=== PATIENT | female | born 1945 | race Caucasian/White ===

== ENCOUNTER 2016-07-26 11:30 | Inpatient (IN) ==
[2016-07-26] MEDS ORDERED: HYDROmorphone 2 MG/1 ML VIAL ONE (12:05)
[2016-07-26] MEDS ORDERED: ONDANSETRON 4 MG/2 ML VIAL ONE ×2 (12:05→16:16)
[2016-07-26] MEDS ORDERED: ONDANSETRON 4 MG/2 ML VIAL IV STA (12:08)
[2016-07-26] MEDS ORDERED: HYDROmorphone 2 MG/1 ML VIAL IV STA ×2 (12:08→14:05)
--- NOTE | 2016-07-26 12:13 | Emergency Department Note ---
Arrival - Arrival Chief Complaint: Fall Stated Complaint: fall ED Nursing Triage Note: Brought in per EMS from home with c/o right ankle pain and swelling onset 1030am. Reports was walking in yard, stepped in hole, twisted ankle, and fell. Obvious deformity noted right medial ankle. +pedal pulse. Skin warm/dry to touch. Abrasion noted right medial ankle. Splint noted left lower extremity. Mode of Arrival: Stretcher Source: Patient, RN Notes Reviewed Time Seen by Provider: 07/26/16 12:03 - History of Present Illness HPI Narrative: Patient is a 71-year-old white female who presents to the emergency department following a fall at home. Patient states that she stepped in a hole in the yard. Patient has severe right ankle pain and an obvious deformity. Patient was brought to the emergency department by EMS. Onset (ago): minute(s) (30) Consistency: constant Severity: severe Date of Last Menstrual Period: hyst Allergies/Adverse Reactions: Allergies Allergy/AdvReac Type Severity Reaction Status Date / Time isosorbide [From Imdur] Allergy Unknown/Unable Verified 07/26/16 11:43 to obtain propoxyphene [From Darvon] Allergy Unknown/Unable Verified 07/26/16 11:43 to obtain Home Medications: Home Medications Medication Instructions Recorded Confirmed Type Aspirin Tab 325 mg PO DAILY 08/10/14 07/26/16 History Furosemide Tab [Lasix Tab] 20 mg PO DAILY PRN 08/10/14 07/26/16 History Glimepiride 8 mg PO DAILY 08/10/14 07/26/16 History amLODIPine [Norvasc] 5 mg PO DAILY 08/10/14 07/26/16 History Albuterol Sulfate [Ventolin HFA] 2 puff INH Q6HR PRN 12/09/14 07/26/16 History Cholecalciferol (Vitamin D3) 1,000 unit PO DAILY 12/09/14 07/26/16 History [Vitamin D3] Insulin NPH/Regular 70/30 [HumuLIN 30 unit SUBCUT QAM 12/09/14 07/26/16 History 70/30] Insulin NPH/Regular 70/30 [HumuLIN 40 unit SUBCUT QPM 12/09/14 07/26/16 History 70/30] Nitroglycerin Sl Tab [Nitrostat] 0.4 mg SL Q5M PRN 12/09/14 07/26/16 History Biotin 1 mg PO DAILY 12/11/14 07/26/16 History Hyoscyamine Sulfate [Levsin-Sl] 0.125 mg SL Q1-2H PRN #60 tablet 07/03/15 Rx Methocarbamol Tab [Robaxin Tab] 750 mg PO QID PRN #60 tablet 07/03/15 07/26/16 Rx Pantoprazole Tab [Protonix Tab] 40 mg PO DAILY #30 tablet 07/03/15 07/26/16 Rx traMADol TAB [Ultram] 50 mg PO TID PRN #30 tablet 07/03/15 07/26/16 Rx Multivitamin (Centrum) [Centrum 1 tablet PO DAILY 11/19/15 07/26/16 History Tab] Potassium Chloride [K-Tab ER] 10 meq PO BID 11/19/15 07/26/16 History Review of System - Review of System 12 point system: reviewed and no additional remarkable complaints except as stated Medical,Surgical,& Family Hx - Medical History Cardio: History of: CAD, Hypertension Neurology: No history of: Seizures HEENT: No history of: Glaucoma Endocrine: History of: Diabetes Mellitus (IDDM), Dyslipidemia, Thyroid Disorder No history of: Adrenal Disease Respiratory: History of: Bronchitis, COPD Gastrointestinal: History of: GERD, Polyps, GI Problems Musculoskeletal: History of: Back/Neck Problems Hematology: History of: Anemia No history of: Blood Transfusion Reaction Reproductive: History of: Abnormal Pap Smear Other: History of: Miscellaneous Medical Problems (cramps in leg) No history of: Anesthesia Reactions, Cancer - Surgical History Cardiac Surgeries: Sugical HX of: Cardiac Catheterization (2012) HEENT Surgeries: Surgical HX of: Eye Surgery (cataract) Patient denies: Thyroid Surgery Abdominal Surgeries: Surgical HX of: Abdominal Surgery (GASTRIC NEuROSTIMULATOR) , Appendectomy, Cholecystectomy, Colonoscopy, EGD Reproductive Surgeries: Surgical HX of;: Breast Surgery (Cyst extraction), Gynecologic Surgery, Hysterectomy Patient denies;: Genitourinary Surgery Orthopedic Surgeries: Patient denies;: Orthopedic Surgery - Family History Family History: Reports;: Family Cancer (brother-lung, sister-liver), Family Diabetes (all siblings), Family Heart Disease (mother and father had [place], 3 brothers had cabg), Family Hypertension (brother) - Social History Smoking Status: Never smoker Frequency of Alcohol Use: None Type of Drug Use: None Functional capacity: independent ambulation Exam Vital Signs: Vital Signs Temperature 97.7 F 07/26/16 11:30 Pulse Rate 77 07/26/16 11:30 Respiratory Rate 18 07/26/16 11:30 Blood Pressure 145/84 07/26/16 11:30 O2 Sat by Pulse Oximetry 98 07/26/16 11:30 GENERAL: This is a well-nourished well-developed white female in no apparent distress. VITAL SIGNS: Reviewed HEENT: Head is atraumatic and normocephalic. Pupils are equal round react to light. Extraocular movements are intact. Oropharynx is benign with moist mucous membranes. NECK: Neck is soft and supple without tenderness. There are no masses. There is no lymphadenopathy. LUNGS: Lungs are clear to auscultation. Chest rises symmetrically. There is no chest wall tenderness. CV: Heart is regular rate and rhythm without murmurs rubs or gallops. ABDOMEN: Abdomen is soft, nontender to palpation. There are no abdominal abnormal masses palpated. There is no organomegaly. Bowel sounds are present and active. SKIN: Skin is warm and dry. No rash. EXTREMITIES: Obvious deformity of the right ankle. Swelling about the right ankle. There is tenderness overlying the proximal fibula. Capillary refill is less than 2 seconds. NEUROLOGIC: Awake alert and oriented 4. Cranial nerves II through XII are grossly intact. Motor is 5 over 5 in all extremities bilaterally. Course - Consultations Consultation #1: Discussed with Dr. Smith. Patient will be admitted to his service. Patient will be held n.p.o. for open reduction internal fixation later this afternoon. Time: 12:54 Procedures - Orthopedic Fracture Reduction Fracture #1 Consent Obtained: written consent Time Out Performed: Yes Side: right Fracture Reduction Location: other (Closed trimalleolar fracture dislocation of right ankle.) Analgesia: procedural sedation (Diprivan 50 mg IV given by me. Estrada/Kiera) Technique: direct manipulation Post Reduction X-rays Demonstrate: anatomical reduction Post-reduction neuro exam: intact Post-reduction vascular exam: intact Splint Applied: Yes (Posterior splint and stirrup splint applied with generous cast padding.) Patient Tolerated Procedure: well Results - Labs Lab Results: I have reviewed the patients labs - EKG EKG results: interpreted by ERMD - Impressions EKG: Normal sinus rhythm with a rate of 67, normal ST-T waves, normal axis. - Diagnostic Findings Procedure: Chest x-ray: image reviewed by me (No cardiomegaly, no pleural effusions, no infiltrate.), X-ray: image reviewed by me (Right ankle x-ray: Trimalleolar fracture dislocation of the right ankle. Tib-fib x-ray: No evidence of proximal fibular fracture. Postreduction x-ray right ankle:) Disposition Clinical Impression: Diabetes mellitus, Closed trimalleolar fracture of right ankle Case discussed with: patient Disposition: Still a Patient Condition: Stable Time of Disposition: 12:52
[2016-07-26] MEDS ORDERED: PROPOFOL 200 MG/20 ML VIAL IV ONE ×2 (12:29→16:16)
[2016-07-26] MEDS ORDERED: SODIUM CHLORIDE 0.9% 1,000 ML IV SCH (12:30)
--- NOTE | 2016-07-26 12:41 | XRay Report ---
Portable chest Date: 07/26/2016 Clinical history: Respiratory preoperative evaluation Comparison: 11/19/2015 Technique: Portable AP sitting chest Findings: The heart is smaller in size with interval removal of the endotracheal tube. Decreased parenchymal findings in the lungs with probable chronic scarring at the lung bases. Stable mediastinum with no acute osseous findings. Impression: No acute cardiopulmonary pathology identified. PROCEDURE INTERPRETED AT [facility] DEPARTMENT OF RADIOLOGY Final Report Signed by: Dr. Kala Araya
--- NOTE | 2016-07-26 12:44 | XRay Report ---
Exam: XR ankle 3V RT Date: 07/26/2016 11:59 AM Comparison: None Indication: Pain after fall Technique:[AP, oblique, and lateral right ankle] Findings: Soft tissue swelling. Acute oblique fracture on the distal right fibula with posterior medial displacement of the distal fracture fragment. There is an acute transverse fracture of the medial malleolus which is displaced beneath the distal tibia which is dislocated anteriorly in relationship to the talus. There is associated anterior dislocation of the fibula. Additional displaced oblique fracture of the posterior malleolus. Calcaneal osteophytes. Impression: Soft tissue swelling with trimalleolar fracture/dislocation right ankle. Underlying degenerative changes with calcaneal osteophytes. PROCEDURE INTERPRETED AT [facility] DEPARTMENT OF RADIOLOGY Final Report Signed by: Dr. Kala Araya
--- NOTE | 2016-07-26 12:46 | XRay Report ---
Exam: XR tibia fibula RT Date: 07/26/2016 12:07 PM Comparison: None Indication: Right lower leg pain after fall Technique:[AP and lateral right tibia/fibula] Findings: Soft tissue swelling. Acute displaced fractures of the distal right fibula, medial malleolus, and posterior malleolus. There is anterior dislocation of the distal tibia and fibula in relationship to the talus. Underlying minimal degenerative changes. Impression: Soft tissue swelling. Acute displaced trimalleolar fracture/dislocation of the right ankle. PROCEDURE INTERPRETED AT [facility] DEPARTMENT OF RADIOLOGY Final Report Signed by: Dr. Kala Araya
--- NOTE | 2016-07-26 13:02 | EKG Report ---
Stationary ECG Study [facility] Test Date: 07/26/2016 1:01:44 PM Pat Name: DONA HERNANDEZ Department: Room: Gender: F Commission Clerk: : 1945 Requested by: Bean Heard Order Number: [id number] Reading MD: FOZIA WEEKS Intervals Julian Rate: 67 P: 69 KS: 196 QRS: 21 QRSD: 80 T: 54 QT: 404 QTc: 420 Interpretive Statements SINUS RHYTHM Electronically Signed On 08-01-16 10:56:21 CDT by FOZIA WEEKS [email or web address]
--- NOTE | 2016-07-26 13:02 | XRay Report ---
Exam: XR ankle 2V RT Date: 07/26/2016 12:47 PM Comparison: 07/26/2016 Indication: Post reduction Technique:[AP and lateral right ankle] Findings: Improved alignment of the right trimalleolar fracture with interval reduction of the dislocation of the tibia and fibula in relationship to the talus. Application of plaster cast. Impression: Improved alignment of the trimalleolar fracture with reduction of dislocation of the right ankle. Application of plaster cast. PROCEDURE INTERPRETED AT [facility] DEPARTMENT OF RADIOLOGY Final Report Signed by: Dr. Kala Araya
[2016-07-26] MEDS ORDERED: FAMOTIDINE 20 MG/2 ML VIAL IV STA (13:20)
[2016-07-26] MEDS ORDERED: PROPOFOL 200 MG/20 ML VIAL IV STA (13:21)
[2016-07-26 13:23] LABS: Basophils # 0.1 10*3/uL (0.0-0.2); Basophils % 0.5 % (0.0-0.8); Eosinophils # 0.2 10*3/uL (0.0-0.87); Eosinophils % 1.8 % (0.00-10.9); Hematocrit 38.1 VOL% (35.7-47.0); Hemoglobin 12.5 GM/DL (12.0-16.0); Immature Granulocytes % 0.2 %; Immature Granulocytes Absolute 0.02 #; Lymphocytes # 1.7 10*3/uL (1.4-4.0); Mean Corpuscular HGB Conc 32.8 GM/DL (32-36); Mean Corpuscular Hemoglobin 30 PG (27-34); Mean Corpuscular Volume 90.9 FL (87-102); Mean Platelet Volume 10.9 FL (9.6-12.0); Monocytes # 0.6 10*3/uL (0.11-0.8); Monocytes % 6.5 % (1.7-12.7); Neutrophils # 6.9 10*3/uL (1.4-7.4); Platelet Count 240 T/CUMM (130-400); Red Blood Count 4.19 MC/CUMM (3.8-5.5); Red Cell Distribution Width 11.8 % (9.3-17.3); White Blood Count 9.5 T/CUMM (4-12)
[2016-07-26] MEDS ORDERED: MAGNESIUM HYDROXIDE SUSP 30 ML UDCUP PO PRN (13:23)
[2016-07-26] MEDS ORDERED: HYDROmorphone 2 MG/1 ML VIAL IV PRN (13:25)
[2016-07-26] MEDS ORDERED: ONDANSETRON 4 MG/2 ML VIAL IV PRN (13:26)
[2016-07-26 13:27] LABS: PT Patient Result 10.9 SECS; Partial Thromboplastin Time 24.2 SECS (0-40)
[2016-07-26 13:43] LABS: Osmolality,Calculated 290.1 MOS/KG (273-304)
[2016-07-26] MEDS ORDERED: SODIUM CHLORIDE 0.9% 1,000 ML IV STA (14:06)
[2016-07-26] MEDS ORDERED: FAMOTIDINE 20 MG/2 ML VIAL IV ONE (14:14)
[2016-07-26] MEDS ORDERED: ROPIVACAINE 0.5% 30 ML VIAL ONE (14:38)
[2016-07-26] MEDS ORDERED: METOCLOPRAMIDE 10 MG/2 ML VIAL ONE (14:56)
[2016-07-26] MEDS ORDERED: METOCLOPRAMIDE 10 MG/2 ML VIAL IV ONE (14:57)
[2016-07-26] MEDS ORDERED: ceFAZolin 2,000 MG in PREMIX 1 EACH IV ONE (15:02)
[2016-07-26] MEDS ORDERED: MIDAZOLAM 2 MG/2 ML VIAL ONE ×2 (15:38→17:41)
[2016-07-26] MEDS ORDERED: fentaNYL 100 MCG/2 ML VIAL ONE ×2 (15:38→17:41)
[2016-07-26] MEDS: LACTATED RINGERS 1,000 ML IV SCH ×2 (15:45→17:35)
--- NOTE | 2016-07-26 16:11 | Orthopedic History & Physical ---
Assessment and Plan (1) Closed trimalleolar fracture of right ankle Status: Acute Current Visit: Yes Qualifiers: Encounter type: initial encounter Qualified Code(s): S82.851A - Displaced trimalleolar fracture of right lower leg, initial encounter for closed fracture History of Present Illness Chief complaint: Right trimalleolar ankle fracture dislocation History of present illness: Ms. Power is a 71 year old female who sustained a right trimalleolar ankle fracture dislocation after stepping in a hole in the yard. She was seen and evaluated [place] emergency room. Dr. Estrada reduced and splinted her ankle. She presents for formal fixation of her ankle. She has not had any prior history of problems with her ankle or foot. She denies any other injury. She denies numbness or tingling. Mildly sedated, oriented. Lungs clear to auscultation Heart regular rate and rhythm Spine block, bilateral upper extremities, left lower extremity are without deformity and are nontender. Right lower extremity splinted. She can flex extend her toes. Sensations grossly intact light touch. Capillary refill is less than 2 seconds. Radiographs injury and post reduction films were reviewed. They demonstrate a trimalleolar ankle fracture and subsequent reduction in adequate alignment. Impression: Right trimalleolar ankle fracture dislocation Plan: I have advised open reduction fixation. Risks benefits were discussed. All questions were answered. We will plan proceeding with surgery. Anesthesia is to perform a popliteal block. Home Medications Medication Instructions Recorded Confirmed Type Aspirin Tab 325 mg PO DAILY 08/10/14 07/26/16 History Furosemide Tab [Lasix Tab] 20 mg PO DAILY PRN 08/10/14 07/26/16 History Glimepiride 8 mg PO DAILY 08/10/14 07/26/16 History amLODIPine [Norvasc] 5 mg PO DAILY 08/10/14 07/26/16 History Albuterol Sulfate [Ventolin HFA] 2 puff INH Q6HR PRN 12/09/14 07/26/16 History Cholecalciferol (Vitamin D3) 1,000 unit PO DAILY 12/09/14 07/26/16 History [Vitamin D3] Insulin NPH/Regular 70/30 [HumuLIN 30 unit SUBCUT QAM 12/09/14 07/26/16 History 70/30] Insulin NPH/Regular 70/30 [HumuLIN 40 unit SUBCUT QPM 12/09/14 07/26/16 History 70/30] Nitroglycerin Sl Tab [Nitrostat] 0.4 mg SL Q5M PRN 12/09/14 07/26/16 History Biotin 1 mg PO DAILY 12/11/14 07/26/16 History Hyoscyamine Sulfate [Levsin-Sl] 0.125 mg SL Q1-2H PRN #60 tablet 07/03/15 Rx Methocarbamol Tab [Robaxin Tab] 750 mg PO QID PRN #60 tablet 07/03/15 07/26/16 Rx Pantoprazole Tab [Protonix Tab] 40 mg PO DAILY #30 tablet 07/03/15 07/26/16 Rx traMADol TAB [Ultram] 50 mg PO TID PRN #30 tablet 07/03/15 07/26/16 Rx Multivitamin (Centrum) [Centrum 1 tablet PO DAILY 11/19/15 07/26/16 History Tab] Potassium Chloride [K-Tab ER] 10 meq PO BID 11/19/15 07/26/16 History Allergies Allergy/AdvReac Type Severity Reaction Status Date / Time isosorbide [From Imdur] Allergy Unknown/Unable Verified 07/26/16 11:43 to obtain propoxyphene [From Darvon] Allergy Unknown/Unable Verified 07/26/16 11:43 to obtain 12 point system: reviewed and no additional remarkable complaints except as stated Medical,Surgical,& Family Hx - Medical History Cardio: History of: CAD, Hypertension Neurology: No history of: Seizures HEENT: No history of: Glaucoma Endocrine: History of: Diabetes Mellitus (IDDM), Dyslipidemia, Thyroid Disorder No history of: Adrenal Disease Respiratory: History of: Bronchitis, COPD Gastrointestinal: History of: GERD, Polyps, GI Problems Musculoskeletal: History of: Back/Neck Problems Hematology: History of: Anemia No history of: Blood Transfusion Reaction Reproductive: History of: Abnormal Pap Smear Other: History of: Miscellaneous Medical Problems (cramps in leg) No history of: Anesthesia Reactions, Cancer - Surgical History Cardiac Surgeries: Sugical HX of: Cardiac Catheterization (2012) HEENT Surgeries: Surgical HX of: Eye Surgery (cataract) Patient denies: Thyroid Surgery Abdominal Surgeries: Surgical HX of: Abdominal Surgery (GASTRIC NEuROSTIMULATOR) , Appendectomy, Cholecystectomy, Colonoscopy, EGD Reproductive Surgeries: Surgical HX of;: Breast Surgery (Cyst extraction), Gynecologic Surgery, Hysterectomy Patient denies;: Genitourinary Surgery Orthopedic Surgeries: Patient denies;: Orthopedic Surgery - Family History Family History: Reports;: Family Cancer (brother-lung, sister-liver), Family Diabetes (all siblings), Family Heart Disease (mother and father had [place], 3 brothers had cabg), Family Hypertension (brother) - Social History Smoking Status: Never smoker Frequency of Alcohol Use: None Type of Drug Use: None Exam - Constitutional Vitals: Period Temp Pulse Resp BP Sys/Garcia Pulse Ox Last 24 Hr 97.7 F 73-80 18-18 134-164/57-85 96-98 Results - Labs CBC & BMP: 07/26/16 12:54 07/26/16 12:54
[2016-07-26] MEDS ORDERED: LIDOCAINE 1% 5 ML VIAL ONE (16:16)
[2016-07-26] MEDS ORDERED: ROCURONIUM 100 MG/10 ML VIAL IV ONE (16:16)
[2016-07-26] MEDS ORDERED: BACITRACIN OINT 0.9 GM PACK TOP ONE (17:09)
[2016-07-26] MEDS ORDERED: FUROSEMIDE 20 MG TABLET PO PRN (17:19)
[2016-07-26] MEDS ORDERED: NITROGLYCERIN SL 0.4 MG TABLET SL PRN (17:19)
[2016-07-26] MEDS ORDERED: HYOSCYAMINE 0.125 MG TABLET SL PRN (17:19)
[2016-07-26] MEDS ORDERED: DEXTROSE 50% 25 GM/50 ML VIAL IV PRN (17:20)
[2016-07-26] MEDS ORDERED: GLUCAGON 1 MG VIAL IM PRN (17:20)
[2016-07-26] MEDS ORDERED: MORPHINE 2 MG/1 ML SYRINGE IV PRN ×2 (17:21)
[2016-07-26] MEDS ORDERED: KETOROLAC 15 MG/1 ML VIAL IV PRN (17:21)
--- NOTE | 2016-07-26 17:29 | Operative Note ---
Date of procedure: 07/26/16 Procedure: DIAGNOSIS: Right displaced trimalleolar fracture PROCEDURE: Right trimalleolar open reduction and fixation without fixation posterior lip (CPT#69945) SURGEON: Luis ANESTHESIA: General with popliteal block PROCEDURE and FINDINGS: After adequate anesthesia was induced, the limb was prepped and draped in the usual sterile fashion. Limb was exsanguinated with Esmarch. Tourniquet was inflated to 300 mmHg. A lateral approach to the distal fibula was made. Skin, subcutaneous tissue, and periosteum was incised longitudinally. Fracture was exposed and reduced. A 6-hole antiglide plate was applied with 2 proximal screws. The medial malleolus was exposed through a medial incision. Neurovascular structures were protected. Fracture was identified and reduced. Medial malleolus was secured with a pin and then followed with a 4.0 mm cannulated partially threaded screw. Wounds were irrigated. Periosteum was approximated with 0 Vicryl figure-of- eight sutures. Subcutaneous tissues were closed with 3-0 Vicryl interrupted, buried sutures. Skin was approximated with malena. Sterile dressing and short leg splint was applied. Tourniquet was released for an approximate time of 34 minutes. Image intensification was used throughout the procedure. Surgeon / Physician: Kamari Smith Jr. Results - Labs CBC & BMP: 07/26/16 12:54 07/26/16 12:54 Discharge Plan - Discharge Medications No Action Aspirin Tab 325 mg PO DAILY amLODIPine [Norvasc] 5 mg PO DAILY Furosemide Tab [Lasix Tab] 20 mg PO DAILY PRN PRN Reason: Edema Glimepiride 8 mg PO DAILY Albuterol Sulfate [Ventolin HFA] 2 puff INH Q6HR PRN PRN Reason: Shortness Of Breath Nitroglycerin Sl Tab [Nitrostat] 0.4 mg SL Q5M PRN PRN Reason: Chest Pain Insulin NPH/Regular 70/30 [HumuLIN 70/30] 40 unit SUBCUT QPM Insulin NPH/Regular 70/30 [HumuLIN 70/30] 30 unit SUBCUT QAM Cholecalciferol (Vitamin D3) [Vitamin D3] 1,000 unit PO DAILY Biotin 1 mg PO DAILY Hyoscyamine Sulfate [Levsin-Sl] 0.125 mg SL Q1-2H PRN #60 tablet PRN Reason: chest pain esophageal spasm Methocarbamol Tab [Robaxin Tab] 750 mg PO QID PRN #60 tablet PRN Reason: Chest Pain Pantoprazole Tab [Protonix Tab] 40 mg PO DAILY #30 tablet traMADol TAB [Ultram] 50 mg PO TID PRN #30 tablet PRN Reason: Chest Pain Multivitamin (Centrum) [Centrum Tab] 1 tablet PO DAILY Potassium Chloride [K-Tab ER] 10 meq PO BID - Follow Up or Referral - Forms/Instructions
[2016-07-26] MEDS ORDERED: LACTATED RINGERS 1,000 ML IV ONE (17:41)
[2016-07-26] MEDS ORDERED: SEVOFLURANE 1 UNIT/15 MINUTE INH ONE (17:41)
--- NOTE | 2016-07-26 17:52 | XRay Report ---
Referring Physician: Kamari Smith Jr Exam: XR ankle 3V RT intraoperative Date: July 26, 2016 at 4:08 PM Reason: ORIF right ankle Comparison: Right ankle x-rays July 26, 2016 Findings: 3 images of the right ankle were provided after performance of the procedure. Fluoroscopy time was 4.4 seconds. Images demonstrate internal fixation of the distal right fibula and medial malleolus. Position and alignment appear satisfactory. A fracture of the posterior distal right tibia is also suspected. No new acute fracture is identified. Impression: Images are presumed satisfactory for the purposes of the procedure. PROCEDURE INTERPRETED AT [facility] DEPARTMENT OF RADIOLOGY Final Report Signed by: Dr. Deidra Betancourt
--- NOTE | 2016-07-26 18:10 | Anesthesia Post-Op ---
Anesthesia Post OP - Post Ansesthetic Evaluation Patient seen in post op: Yes Resp: within normal limits CV: within normal limits Mental: within normal limits Temp: within normal limits [id number]: within normal limits Nausea and Vomiting: within normal limits Pain: within normal limits
[2016-07-26] MEDS ORDERED: ALBUTEROL 2.5 MG/3 ML NEB RESP TX PRN (19:00)
[2016-07-26] MEDS: POTASSIUM CHLORIDE 10 MEQ TABLET PO SCH (20:35)
[2016-07-26] MEDS: INSULIN LISPRO 100 UNIT/ML SUBCUT SCH (20:35)
[2016-07-27] MEDS: LACTATED RINGERS 1,000 ML IV SCH (04:00)
[2016-07-27 06:33] LABS: Basophils % 0.4 % (0.0-0.8); Eosinophils # 0.2 10*3/uL (0.0-0.87); Eosinophils % 1.7 % (0.00-10.9); Hematocrit 38.7 VOL% (35.7-47.0); Hemoglobin 12.6 GM/DL (12.0-16.0); Immature Granulocytes % 0.5 %; Immature Granulocytes Absolute 0.05 #; Lymphocytes # 2.3 10*3/uL (1.4-4.0); Lymphocytes % 23.9 % (21.3-54.2); Mean Corpuscular HGB Conc 32.6 GM/DL (32-36); Mean Corpuscular Hemoglobin 30 PG (27-34); Mean Corpuscular Volume 92.6 FL (87-102); Monocytes # 1.1 10*3/uL (0.11-0.8); Monocytes % 11.4 % (1.7-12.7); Neutrophils # 5.9 10*3/uL (1.4-7.4); Neutrophils % 62.1 % (38.7-73.9); Platelet Count 234 T/CUMM (130-400); Red Blood Count 4.18 MC/CUMM (3.8-5.5); Red Cell Distribution Width 11.9 % (9.3-17.3); White Blood Count 9.5 T/CUMM (4-12)
[2016-07-27] MEDS: ceFAZolin 2,000 MG in PREMIX 1 EACH IV SCH ×2 (06:38)
[2016-07-27 07:01] LABS: Calcium 8.4 MG/DL (8.5-10.1); Osmolality,Calculated 283.4 MOS/KG (273-304); Potassium 4.2 MMOL/L (3.5-5.1)
--- NOTE | 2016-07-27 07:18 | Orthopedic Progress Note ---
Assessment and Plan (1) Closed trimalleolar fracture of right ankle Status: Acute Current Visit: Yes Qualifiers: Encounter type: initial encounter Qualified Code(s): S82.851A - Displaced trimalleolar fracture of right lower leg, initial encounter for closed fracture Orthopedics - Subjective Interval history: Ms. Chung is complaining of some medial sided ankle pain. Right lower extremity shows that her splint is clean, dry and intact. She has weak flexion of her toes. Sensation is still mildly diminished. Capillary refill is less than 2 seconds. Toes warm and pink. Impression: Postoperative day #1 status post open reduction fixation right trimalleolar ankle fracture Plan: Mobilize with physical therapy today. Consult hospitalist service for diabetic management. Tentatively plan discharged home tomorrow. She will require a walker. Exam - Constitutional Vitals: Period Temp Pulse Resp BP Sys/Garcia Pulse Ox Last 24 Hr 97 F-98.8 F 73-101 16-20 113-177/57-94 94-98 Results - Labs CBC & BMP: 07/27/16 06:02 07/27/16 06:02 Quality Measures - VTE Contraindication to Pharmacological VTE Prophylaxis: Already on Theraputic Agent , No Prophylaxis Needed
[2016-07-27] MEDS: amLODIPine 5 MG TABLET PO SCH (08:18)
[2016-07-27] MEDS: POTASSIUM CHLORIDE 10 MEQ TABLET PO SCH ×2 (08:18→20:48)
[2016-07-27] MEDS: GLIMEPIRIDE 4 MG TABLET PO SCH (08:18)
[2016-07-27] MEDS: CHOLECALCIFEROL 1,000 UNIT TABLET PO SCH (08:18)
[2016-07-27] MEDS: ASPIRIN 325 MG TABLET PO SCH (08:18)
[2016-07-27] MEDS: PANTOPRAZOLE 40 MG TABLET PO SCH (08:18)
[2016-07-27] MEDS: MULTIVITAMIN (CENTRUM) TABLET PO SCH (08:18)
[2016-07-27] MEDS: INSULIN NPH/REGULAR 70/30 100 UNIT/ML SUBCUT SCH (08:20)
[2016-07-27] MEDS: INSULIN LISPRO 100 UNIT/ML SUBCUT SCH ×4 (08:20→20:48)
[2016-07-27] MEDS ORDERED: NON-FORMULARY MEDICATION (Biotin [Biotin] 1 MG) PO SCH (09:00)
--- NOTE | 2016-07-27 10:26 | Hospitalist Consult Note ---
<Tommy Saldana - Last Filed: 07/27/16 10:13> Assessment and Plan - Time spent with patient Time spent with patient: Greater than 30 minutes (1) Diabetes mellitus Status: Acute Assessment and plan: Agree with SSI protocol and Amaryl 8 mg po daily. Accu-cheks ACHS. Continue current plan of care. Check Hgb A1c and Lipid panel stat. Current Visit: Yes (2) Closed trimalleolar fracture of right ankle Status: Acute Assessment and plan: s/p ORIF on yesterday. Patient appears to be doing well. Will defer to ortho for management. Current Visit: Yes Qualifiers: Encounter type: initial encounter Qualified Code(s): S82.851A - Displaced trimalleolar fracture of right lower leg, initial encounter for closed fracture (3) Hypertension Status: Acute Assessment and plan: Continue Norvasc 5mg. Will continue to monitor BP and adjust medications accordingly. Current Visit: Yes History of Present Illness - Data of Consult Patient: new to practice Consult date: 07/27/16 Requesting Physician: Kamari Smith Jr. - Consult Narrative Reason for consult: Medical management History of present illness: Ms. Power is a 71 year old female who as been admitted for formal fixation of her right ankle after sustaining a fracture on 07/26/16. She reports that she fell after stepping in a hole while walking through her yard. She presented to the ED where Dr. Estrada reduced and splinted her ankle before being sent for an ORIF by Dr. Smith. We have been consulted for medical management of her diabetes mellitus. On exam today, she is resting comfortably in the bedside chair with her right foot propped and supported on a stool. Her cast is dry and intact. She denies any pain, numbness or tingling. She admits to a history of smoking but says she quit more than 30 years ago. She denies alcohol use. Laboratory findings reveal serum glucose of 219. She has been started on sliding scale insulin and Amaryl 8 mg daily. We will continue to follow along and monitor throughout her stay. Thank you for the consult. CC: Kamari Smith Jr., - Home Medications and Allergies Home Medications: Home Medications Medication Instructions Recorded Confirmed Type Aspirin Tab 325 mg PO DAILY 08/10/14 07/26/16 History Furosemide Tab [Lasix Tab] 20 mg PO DAILY PRN 08/10/14 07/26/16 History Glimepiride 8 mg PO DAILY 08/10/14 07/26/16 History amLODIPine [Norvasc] 5 mg PO DAILY 08/10/14 07/26/16 History Albuterol Sulfate [Ventolin HFA] 2 puff INH Q6HR PRN 12/09/14 07/26/16 History Cholecalciferol (Vitamin D3) 1,000 unit PO DAILY 12/09/14 07/26/16 History [Vitamin D3] Insulin NPH/Regular 70/30 [HumuLIN 30 unit SUBCUT QAM 12/09/14 07/26/16 History 70/30] Insulin NPH/Regular 70/30 [HumuLIN 40 unit SUBCUT QPM 12/09/14 07/26/16 History 70/30] Nitroglycerin Sl Tab [Nitrostat] 0.4 mg SL Q5M PRN 12/09/14 07/26/16 History Biotin 1 mg PO DAILY 12/11/14 07/26/16 History Hyoscyamine Sulfate [Levsin-Sl] 0.125 mg SL Q1-2H PRN #60 tablet 07/03/15 Rx Methocarbamol Tab [Robaxin Tab] 750 mg PO QID PRN #60 tablet 07/03/15 07/26/16 Rx Pantoprazole Tab [Protonix Tab] 40 mg PO DAILY #30 tablet 07/03/15 07/26/16 Rx traMADol TAB [Ultram] 50 mg PO TID PRN #30 tablet 07/03/15 07/26/16 Rx Multivitamin (Centrum) [Centrum 1 tablet PO DAILY 11/19/15 07/26/16 History Tab] Potassium Chloride [K-Tab ER] 10 meq PO BID 11/19/15 07/26/16 History Allergies/Adverse Reactions: Allergies Allergy/AdvReac Type Severity Reaction Status Date / Time isosorbide [From Imdur] Allergy Unknown/Unable Verified 07/26/16 11:43 to obtain propoxyphene [From Darvon] Allergy Unknown/Unable Verified 07/26/16 11:43 to obtain Medical,Surgical,& Family Hx - Medical History Cardio: History of: CAD, Hypertension Neurology: No history of: Seizures HEENT: No history of: Glaucoma Endocrine: History of: Diabetes Mellitus (IDDM), Dyslipidemia, Thyroid Disorder No history of: Adrenal Disease Respiratory: History of: Bronchitis, COPD Gastrointestinal: History of: Crohn's Disease, GERD, Polyps, Ulcerative Colitis , GI Problems Musculoskeletal: History of: Back/Neck Problems Hematology: History of: Anemia No history of: Blood Transfusion Reaction Reproductive: History of: Abnormal Pap Smear Other: History of: Miscellaneous Medical Problems (cramps in leg) No history of: Anesthesia Reactions, Cancer - Surgical History Cardiac Surgeries: Sugical HX of: Cardiac Catheterization (2012) Thoracic Surgeries: Patient denies;: Organ Transplant HEENT Surgeries: Surgical HX of: Eye Surgery (cataract) Patient denies: Thyroid Surgery Abdominal Surgeries: Surgical HX of: Abdominal Surgery (GASTRIC NEuROSTIMULATOR) , Appendectomy, Cholecystectomy, Colonoscopy, EGD Reproductive Surgeries: Surgical HX of;: Breast Surgery (Cyst extraction), Gynecologic Surgery, Hysterectomy Patient denies;: Genitourinary Surgery Orthopedic Surgeries: Patient denies;: Orthopedic Surgery - Family History Family History: Reports;: Family Cancer (brother-lung, sister-liver), Family Diabetes (all siblings), Family Heart Disease (mother and father had AK, 3 brothers had cabg), Family Hypertension (brother) - Social History Smoking Status: Former smoker Have you smoked in the last 12 months: No Frequency of Alcohol Use: None Type of Drug Use: None Marital Status: Single Lives With:: Alone Functional capacity: independent ambulation - Constitutional Constitutional: Absent: fatigue, fever(s), frequent falls, headache(s) - EENT Eyes: Absent: blurry vision, loss of vision Ears: Absent: decreased hearing, ear pain Nose, mouth and throat: Absent: lip swelling, sore throat, vertigo - Cardiovascular Cardiovascular: Present: palpitations. Absent: chest pain with activity, dyspnea, edema - Respiratory Respiratory: Absent: cough, dyspnea, wheezing - Gastrointestinal Gastrointestinal: Absent: abdominal pain, change in bowel habits, constipation, diarrhea, nausea - Genitourinary Genitourinary: Absent: dysuria, flank pain - Musculoskeletal Musculoskeletal: Absent: back pain, joint swelling - Neurological Neurological: Absent: abnormal speech, confusion, dizziness, numbness, paresthesias - Psychiatric Psychiatric: Absent: anxiety, depression - Endocrine Endocrine: Absent: cold intolerance - Hematologic/Lymphatic Hematologic/Lymphatic: Absent: easy bleeding, easy bruising Exam - Constitutional Vitals: Period Temp Pulse Resp BP Sys/Garcia Pulse Ox Last 24 Hr 97 F-98.8 F 73-101 16-20 113-177/57-94 94-98 Exam: General appearance: obese, no acute distress - Head Head exam: Present: normocephalic, atraumatic - Eye Eye exam: Present: EOMI. Absent: conjunctival injection, nystagmus Pupils: Present: MARIANA, normal accommodation - ENT ENT exam: Present: normal exam, normal external ear exam - Neck Neck exam: Present: normal inspection. Absent: lymphadenopathy, tenderness, thyromegaly - Respiratory Respiratory exam: Present: clear to auscultation bilaterally. Absent: rales, rhonchi, wheezes - Cardiovascular Cardiovascular exam: Present: regular rate and rhythm. Absent: carotid bruit, gallop, rubs - GI/Abdominal GI/Abdominal exam: Present: normal bowel sounds. Absent: ascites, distended, mass - Extremities Exam Extremities exam: Present: normal inspection, normal capillary refill, cast to right lower extremity Absent: edema - Back Exam Back exam: Absent: CVA tenderness (L), CVA tenderness (R) - Neurological Exam Neurological exam: Present: alert, oriented X3 - Psychiatric Psychiatric exam: Present: normal affect, normal mood - Skin Skin exam: Present: normal color, warm, dry Results - Labs CBC & BMP: 07/27/16 06:02 07/27/16 06:02 Lab Results: I have reviewed the past 24 hour labs Quality Measures - VTE Contraindication to Pharmacological VTE Prophylaxis: Already on Theraputic Agent , No Prophylaxis Needed <Valentina Montejo - Last Filed: 07/27/16 17:24> History of Present Illness - Consult Narrative History of present illness: Shared visit with Tommy MONGE. Ms. Power is a 71 year old female with Hx of DM admitted with right ankle fracture whom we have been asked to see for DM management. Pt denies changes in weight, polydipsia, polyphagia or polyuria. She reports being complaint with meds at home. On exam, A and Ox 3 no acanthosis nigrans RRR no M CTAB nonlabored Soft, NT, ND, +BS Warm no c/c/e Labs/Investigative studies reviewed A/P: DM2-uncontrolled with HgbA1c 9 - agree with current management and BS are better controlled. LDL <70. HDL 68 HTN- cont Norvasc. Monitor vitals Obesity- weight loss, dietary and physical activity modifications recommended. Right ankle fracture s/p ORIF 07/26- mgt per primary service Cont treatment otherwise. Thank you for consulting us to participate in the care of this patient CC: Kamari Smith Jr., Exam - Constitutional Vitals: Period Temp Pulse Resp BP Sys/Garcia Pulse Ox Last 24 Hr 97 F-98.8 F 78-101 16-20 113-177/60-94 92-98 Results - Labs CBC & BMP: 07/27/16 06:02 07/27/16 06:02
[2016-07-27 12:11] LABS: Risk Ratio 1.75; VLDL CHOLESTEROL 25.4 MG/DL
[2016-07-27] MEDS ORDERED: ACETAMINOPHEN 325 MG TABLET PO PRN (18:59)
[2016-07-27] MEDS ORDERED: INSULIN NPH/REGULAR 70/30 100 UNIT/ML SUBCUT SCH (19:00)
--- NOTE | 2016-07-28 07:01 | Discharge Summary ---
Hospital Course - Hospital Course Hospital Course: Ms. Power was admitted after sustaining a right trimalleolar ankle fracture dislocation. She underwent a reduction in the emergency room. She was admitted after undergoing open reduction fixation of her right ankle. She received perioperative antimicrobial prophylaxis and was discharged home in stable condition. The hospitalist service was consulted to help manage her diabetes perioperatively. She complained of neck pain. The morning of post op day two that was felt to be related to her sleeping position. Cervical xrays show midcervical degenerative changes. No fx. Diagnosis - Discharge Diagnosis (1) Closed trimalleolar fracture of right ankle Status: Acute Specialty Discharge - Follow Up or Referrals Follow up with: Kamari Smith Jr., MD [Physician] - 08/10/16 8:15 am Discharge Plan - Discharge Data Disposition: Home Health Service Discharge Diet: diabetic diet Activity: ambulate only with your walker Hygiene: keep area(s) dry Weight Bearing at Discharge: non-weight bearing Driving: not until seen by doctor - Discharge Medications New HYDROcodone/ACETAMIN 7.5-325 [[place] 7.5-325] 2 tablet PO Q4H PRN #0 tablet PRN Reason: Pain Severe (8-10) HYDROcodone/ACETAMIN 7.5-325 [[place] 7.5-325] 1 tablet PO Q4H PRN #0 tablet PRN Reason: Pain Moderate (4-7) Continue Aspirin Tab 325 mg PO DAILY amLODIPine [Norvasc] 5 mg PO DAILY Furosemide Tab [Lasix Tab] 20 mg PO DAILY PRN PRN Reason: Edema Glimepiride 8 mg PO DAILY Albuterol Sulfate [Ventolin HFA] 2 puff INH Q6HR PRN PRN Reason: Shortness Of Breath Nitroglycerin Sl Tab [Nitrostat] 0.4 mg SL Q5M PRN PRN Reason: Chest Pain Insulin NPH/Regular 70/30 [HumuLIN 70/30] 40 unit SUBCUT QPM Insulin NPH/Regular 70/30 [HumuLIN 70/30] 30 unit SUBCUT QAM Cholecalciferol (Vitamin D3) [Vitamin D3] 1,000 unit PO DAILY Biotin 1 mg PO DAILY Hyoscyamine Sulfate [Levsin-Sl] 0.125 mg SL Q1-2H PRN #60 tablet PRN Reason: chest pain esophageal spasm Methocarbamol Tab [Robaxin Tab] 750 mg PO QID PRN #60 tablet PRN Reason: Chest Pain Pantoprazole Tab [Protonix Tab] 40 mg PO DAILY #30 tablet traMADol TAB [Ultram] 50 mg PO TID PRN #30 tablet PRN Reason: Chest Pain Multivitamin (Centrum) [Centrum Tab] 1 tablet PO DAILY Potassium Chloride [K-Tab ER] 10 meq PO BID - Follow Up or Referral Follow Up: Kamari Smith Jr., MD [Physician] - 08/10/16 8:15 am - Forms/Instructions Instructions: Meal Planning with Diabetes Exchanges (DC), Meal Planning with Diabetes Exchanges (GEN), Open Reduction and Internal Fixation of an Ankle Fracture (DC) Additional Discharge Instructions: Follow-up appointment in 10-14 days. Keep splint clean, dry and intact. Elevate right lower extremity 6 inches over heart level. Float heels. Arrange for walker for home use. Strict nonweightbearing right lower extremity. Exam - Constitutional Vitals: Period Temp Pulse Resp BP Sys/Garcia Pulse Ox Last 24 Hr 98.7 F-101.5 F 83-118 18-20 118-153/60-77 91-95 Discharge Results Labs on day of discharge: Labs from last 24 hours 07/27/16 07/27/16 07/27/16 20:09 18:26 16:13 Sodium Potassium Chloride Carbon Dioxide Anion Gap BUN Creatinine GFR Calculation BUN/Creatinine Ratio Glucose POC Glucose 245 H 284 H 106 Hemoglobin A1c Calculated Osmolality Calcium Triglycerides Cholesterol LDL Cholesterol VLDL Cholesterol HDL Cholesterol Heart Disease Risk Ratio 07/27/16 07/27/16 07/27/16 11:21 07:24 06:02 Sodium 140 Potassium 4.2 Chloride 103 Carbon Dioxide 30 Anion Gap 11.2 BUN 8 Creatinine 0.70 GFR Calculation 101 BUN/Creatinine Ratio 11.00 Glucose 219 H POC Glucose 201 H 226 H Hemoglobin A1c Calculated Osmolality 283.4 Calcium 8.4 L Triglycerides Cholesterol LDL Cholesterol VLDL Cholesterol HDL Cholesterol Heart Disease Risk Ratio 07/27/16 07/27/16 05:59 05:59 Sodium Potassium Chloride Carbon Dioxide Anion Gap BUN Creatinine GFR Calculation BUN/Creatinine Ratio Glucose POC Glucose Hemoglobin A1c 9.1 H Calculated Osmolality Calcium Triglycerides 127 Cholesterol 119 LDL Cholesterol 41.0 VLDL Cholesterol 25.4 HDL Cholesterol 68 H Heart Disease Risk Ratio 1.75 DS: Provider Date of admission: 07/26/16 17:23 Primary care physician: . No PCP Attending physician on admission: Kamari Smith Jr., Consults: 07/27/16 07:16 Consult to Physician [CONS] Routine Comment: diabetic management specialist Provider: Valentina Montejo Consulting Provider Notified: Yes When should Consulting Provider be notified: Now Consult to Specialist Group: Hospitalist When should Consulting Provider be notified: Now Person Notified: Tress called Date Notified: 07/27/16 Time Notified: 08:46 07/27/16 10:02 Consult to Physical Therapy [CONS] Routine Reason for Physical Therapy: Other Consult Comment: Take a Standard Walker to rm 318 before Pt is D/C'd home. Discharging clinician: Kamari Smith Jr., Expected date of discharge: 07/28/16
--- NOTE | 2016-07-28 07:07 | Orthopedic Progress Note ---
Assessment and Plan (1) Closed trimalleolar fracture of right ankle Status: Acute Current Visit: Yes Qualifiers: Encounter type: initial encounter Qualified Code(s): S82.851A - Displaced trimalleolar fracture of right lower leg, initial encounter for closed fracture Orthopedics - Subjective Interval history: Ms Power is complaining of neck pain. No numbness or tingling. She's not sure that she hurt her neck in the fall. She has full ROM of her neck with pain at the endpoints of motion. Right lower extremity splints intact. She can flex extend her toes. EHL 5 out of 5. Sensation is grossly intact to her forefoot. Capillary refill is less than 2 seconds. Toes are warm and pink. Plan: I suspect her neck pain is related to positioning while she was sleeping last night. The nurses had to reposition her several times. Will check cervical spine x-rays. The patient would like to be discharged home later today. Exam - Constitutional Vitals: Period Temp Pulse Resp BP Sys/Garcia Pulse Ox Last 24 Hr 98.7 F-101.5 F 83-118 18-20 118-153/60-77 91-95 Results - Labs CBC & BMP: 07/27/16 06:02 07/27/16 06:02 Quality Measures - VTE Contraindication to Pharmacological VTE Prophylaxis: Already on Theraputic Agent , No Prophylaxis Needed
--- NOTE | 2016-07-28 09:27 | XRay Report ---
Exam: XR cervical spine complete Date: 07/28/2016 7:07 AM Indication: Neck pain status post fall Comparison: 06/30/2015 Technical: Lateral AP bilateral oblique and odontoid views 9 total images Findings: The odontoid is intact. 7 cervical vertebral bodies and posterior limits are intact. The neural foramina canals are slightly narrowed bilaterally at C5-6 and C6-7. There is mild disc space narrowing at C5-C6 and C6-7. Attempted calcification along the anterior longitudinal ligament at C4-5 present. No prevertebral soft tissue abnormality. Dental extractions are noted. Impression: 1. 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 Calcification of the anterior longitudinal ligament at C4-5 PROCEDURE INTERPRETED AT [facility] [place] DEPARTMENT OF RADIOLOGY Final Report Signed by: Dr. Deonte Bell
[2016-07-28] MEDS: ASPIRIN 325 MG TABLET PO SCH (09:30)
[2016-07-28] MEDS: MULTIVITAMIN (CENTRUM) TABLET PO SCH (09:30)
[2016-07-28] MEDS: GLIMEPIRIDE 4 MG TABLET PO SCH (09:30)
[2016-07-28] MEDS: CHOLECALCIFEROL 1,000 UNIT TABLET PO SCH (09:30)
[2016-07-28] MEDS: POTASSIUM CHLORIDE 10 MEQ TABLET PO SCH (09:30)
[2016-07-28] MEDS: amLODIPine 5 MG TABLET PO SCH (09:30)
[2016-07-28] MEDS: PANTOPRAZOLE 40 MG TABLET PO SCH (09:30)
[2016-07-28] MEDS: INSULIN NPH/REGULAR 70/30 100 UNIT/ML SUBCUT SCH (09:31)
[2016-07-28] MEDS: INSULIN LISPRO 100 UNIT/ML SUBCUT SCH ×2 (09:31→11:37)
[2016-07-28 12:14] VITALS: BP 127/75
--- NOTE | 2016-07-28 13:58 | Hospitalist Progress Note ---
Hospitalist: Subjective Interval history: Pt seen this am around 9:15am. She reports pain is controlled. No fever. No cp or SOB. No nausea or vomiting. Tolerating po. No BM but pt refuses her home Linzess or any stool softeners. Exam - Constitutional Vitals: Period Temp Pulse Resp BP Sys/Garcia Pulse Ox Last 24 Hr 98.2 F-101.5 F 83-118 18-20 118-153/61-77 91-95 Exam: On exam, A and Ox 3 no acanthosis nigrans RRR no M CTAB nonlabored Soft, NT, ND, +BS Warm no c/c/e Results - Labs CBC & BMP: 07/27/16 06:02 07/27/16 06:02 - Impressions DM2-uncontrolled with HgbA1c 9 - BS controlled here. Cont current management and BS are better controlled. LDL <70. HDL 68 HTN- cont Norvasc. Obesity- weight loss, dietary and physical activity modifications recommended. Right ankle fracture s/p ORIF 07/26- mgt per primary service Chronic constipation- cont home regimen ok to dc from my standpoint. Will sign off. Please call with questions. Quality Measures - VTE Contraindication to Pharmacological VTE Prophylaxis: Already on Theraputic Agent , No Prophylaxis Needed Specialty Discharge - Follow Up or Referrals Follow up with: Kamari Smith Jr., MD [Physician] - 08/10/16 8:15 am
== END 2016-07-28 14:05 | disposition home health service (06) | DRG 494 ==
LOC: EDBD → EDUNIT# → N.ED 11:30 → N.EDINP 11:30 → N.3E 13:57 → N.SDSINP 14:05
PROVIDERS: ADMIT Orthopaedic Surgery; ATTEND Orthopaedic Surgery

== ENCOUNTER 2017-03-21 17:34 | Inpatient (IN) ==
[2017-03-21] MEDS ORDERED: ASPIRIN 325 MG TABLET PO STA (18:32)
[2017-03-21] MEDS ORDERED: ASPIRIN 325 MG TABLET ONE (18:49)
[2017-03-21 18:54] LABS: Basophils # 0.1 10*3/uL (0.0-0.2); Basophils % 0.7 % (0.0-0.8); Eosinophils # 0.2 10*3/uL (0.0-0.87); Eosinophils % 2.1 % (0.00-10.9); Hematocrit 43.5 VOL% (35.7-47.0); Hemoglobin 14.3 GM/DL (12.0-16.0); Immature Granulocytes % 0.3 %; Immature Granulocytes Absolute 0.03 #; Lymphocytes # 2.6 10*3/uL (1.4-4.0); Mean Corpuscular HGB Conc 32.9 GM/DL (32-36); Mean Corpuscular Hemoglobin 30 PG (27-34); Mean Platelet Volume 10.7 FL (9.6-12.0); Monocytes # 0.7 10*3/uL (0.11-0.8); Monocytes % 7.4 % (1.7-12.7); Neutrophils # 5.2 10*3/uL (1.4-7.4); Neutrophils % 59.5 % (38.7-73.9); Platelet Count 295 T/CUMM (130-400); Red Blood Count 4.78 MC/CUMM (3.8-5.5); Red Cell Distribution Width 11.9 % (9.3-17.3); White Blood Count 8.7 T/CUMM (4-12)
[2017-03-21 19:13] LABS: Alanine Aminotransferase 30 U/L (13-56); Albumin 3.8 G/DL (3.4-5.0); Alkaline Phosphatase 252 U/L (45-117); Aspartate Amino Transferase 12 U/L (0-37); Bilirubin,Total < 0.39 MG/DL (0.2-1.0); Blood Urea Nitrogen 21 MG/DL (7-18); Calcium 9.4 MG/DL (8.5-10.1); Glucose 298 MG/DL (74-106); Osmolality,Calculated 290.5 MOS/KG (273-304); Sodium 139 MMOL/L (136-145); Total Protein 7.5 G/DL (6.4-8.3)
[2017-03-21] MEDS ORDERED: INSULIN REGULAR 100 UNIT/ML SUBCUT ONE (20:12)
[2017-03-21] MEDS ORDERED: ALBUTEROL 2.5 MG/3 ML NEB RESP TX PRN (21:54)
[2017-03-21] MEDS ORDERED: FUROSEMIDE 20 MG TABLET PO PRN (21:54)
[2017-03-21] MEDS ORDERED: METHOCARBAMOL 750 MG TABLET PO PRN (21:54)
[2017-03-21] MEDS: ENOXAPARIN 40 MG/0.4 ML SYRINGE SUBCUT SCH (23:16)
[2017-03-21] MEDS ORDERED: LINACLOTIDE 145 MCG CAPSULE PO PRN (23:41)
[2017-03-22 01:35] LABS: Albumin 3.3 G/DL (3.4-5.0); Bilirubin,Total 0.4 MG/DL (0.2-1.0); Calcium 9.1 MG/DL (8.5-10.1); Potassium 3.7 MMOL/L (3.5-5.1); Risk Ratio 1.77; Total Protein 6.7 G/DL (6.4-8.3); VLDL CHOLESTEROL 14.4 MG/DL
[2017-03-22] MEDS: POTASSIUM CHLORIDE 10 MEQ TABLET PO SCH ×3 (03:37→21:11)
[2017-03-22] MEDS: CHOLECALCIFEROL 1,000 UNIT TABLET PO SCH (08:07)
[2017-03-22] MEDS: amLODIPine 5 MG TABLET PO SCH (08:07)
[2017-03-22] MEDS ORDERED: ASPIRIN EC 325 MG TABLET PO SCH (09:00)
[2017-03-22] MEDS: CITALOPRAM 20 MG TABLET PO SCH (09:30)
[2017-03-22] MEDS: MULTIVITAMIN (BEROCCA) TABLET PO SCH (09:30)
[2017-03-22] MEDS: DILTIAZEM CD 180 MG CAPSULE PO SCH (09:30)
[2017-03-22] MEDS: MULTIVITAMIN (CENTRUM) TABLET PO SCH (09:31)
[2017-03-22] MEDS: LOSARTAN 25 MG TABLET PO SCH (09:31)
[2017-03-22] MEDS: CALCIUM (CARBONATE) 500 MG TABLET PO SCH (09:31)
[2017-03-22] MEDS: ATORVASTATIN 20 MG TABLET PO SCH (09:31)
[2017-03-22] MEDS: PANTOPRAZOLE 40 MG TABLET PO SCH (09:31)
[2017-03-22] MEDS: ALBUTEROL 0.63 MG/3 ML NEB RESP TX SCH ×3 (11:40→20:53)
[2017-03-22] MEDS ORDERED: GLUCAGON 1 MG VIAL IM PRN (12:11)
[2017-03-22] MEDS ORDERED: DEXTROSE 50% 25 GM/50 ML VIAL IV PRN (12:11)
[2017-03-22] MEDS: INSULIN LISPRO 100 UNIT/ML SUBCUT SCH ×3 (12:53→21:11)
[2017-03-22] MEDS: RANOLAZINE 500 MG TABLET PO SCH ×2 (12:53→21:11)
[2017-03-22] MEDS ORDERED: cefTRIAXone 1,000 MG in SYRINGE 1 EACH IV SCH (14:30)
[2017-03-22] MEDS ORDERED: AZITHROMYCIN INJ 500 MG in SODIUM CHLORIDE 0.9% 250 ML IV SCH (15:00)
[2017-03-22] MEDS ORDERED: INSULIN NPH/REGULAR 70/30 100 UNIT/ML SUBCUT SCH (16:30)
[2017-03-22] MEDS: ENOXAPARIN 40 MG/0.4 ML SYRINGE SUBCUT SCH (21:11)
[2017-03-22] MEDS ORDERED: diphenhydrAMINE CAP 25 MG CAPSULE PO PRN (23:30)
[2017-03-23] MEDS: ALBUTEROL 0.63 MG/3 ML NEB RESP TX SCH ×3 (01:10→12:17)
[2017-03-23 06:41] LABS: Basophils # 0.1 10*3/uL (0.0-0.2); Basophils % 0.7 % (0.0-0.8); Eosinophils # 0.3 10*3/uL (0.0-0.87); Eosinophils % 3.7 % (0.00-10.9); Hematocrit 39.8 VOL% (35.7-47.0); Hemoglobin 13.3 GM/DL (12.0-16.0); Immature Granulocytes % 0.4 %; Immature Granulocytes Absolute 0.03 #; Lymphocytes # 2.8 10*3/uL (1.4-4.0); Mean Corpuscular HGB Conc 33.4 GM/DL (32-36); Mean Corpuscular Hemoglobin 30 PG (27-34); Mean Corpuscular Volume 90.2 FL (87-102); Mean Platelet Volume 10.9 FL (9.6-12.0); Monocytes # 0.6 10*3/uL (0.11-0.8); Monocytes % 8.4 % (1.7-12.7); Neutrophils # 3.1 10*3/uL (1.4-7.4); Neutrophils % 45.8 % (38.7-73.9); Platelet Count 277 T/CUMM (130-400); Red Blood Count 4.41 MC/CUMM (3.8-5.5); Red Cell Distribution Width 11.9 % (9.3-17.3); White Blood Count 6.7 T/CUMM (4-12)
[2017-03-23 07:09] LABS: Calcium 8.8 MG/DL (8.5-10.1); Magnesium 2.1 MG/DL (1.8-2.4); Osmolality,Calculated 283.4 MOS/KG (273-304)
[2017-03-23] MEDS ORDERED: INSULIN NPH/REGULAR 70/30 100 UNIT/ML SUBCUT SCH (07:30)
[2017-03-23] MEDS ORDERED: ASPIRIN 325 MG TABLET PO SCH (09:00)
[2017-03-23] MEDS: INSULIN LISPRO 100 UNIT/ML SUBCUT SCH ×2 (09:04→13:07)
[2017-03-23] MEDS: MULTIVITAMIN (BEROCCA) TABLET PO SCH (09:04)
[2017-03-23] MEDS: CHOLECALCIFEROL 1,000 UNIT TABLET PO SCH (09:04)
[2017-03-23] MEDS: amLODIPine 5 MG TABLET PO SCH (09:05)
[2017-03-23] MEDS: PANTOPRAZOLE 40 MG TABLET PO SCH (09:05)
[2017-03-23] MEDS: POTASSIUM CHLORIDE 10 MEQ TABLET PO SCH (09:05)
[2017-03-23] MEDS: DILTIAZEM CD 180 MG CAPSULE PO SCH (09:05)
[2017-03-23] MEDS: ATORVASTATIN 20 MG TABLET PO SCH (09:05)
[2017-03-23] MEDS: RANOLAZINE 500 MG TABLET PO SCH (09:05)
[2017-03-23] MEDS: LOSARTAN 25 MG TABLET PO SCH (09:06)
[2017-03-23] MEDS: CITALOPRAM 20 MG TABLET PO SCH (09:06)
[2017-03-23] MEDS: CALCIUM (CARBONATE) 500 MG TABLET PO SCH (09:06)
[2017-03-23] MEDS: MULTIVITAMIN (CENTRUM) TABLET PO SCH (09:06)
[2017-03-23 12:14] VITALS: BP 110/56
== END 2017-03-23 13:50 | disposition home or self-care (01) | DRG 194 ==
LOC: N.EDINP 17:34 → N.ED 17:34 → N.EDINP 20:59 → N.4E 21:07
PROVIDERS: ADMIT Internal Medicine; ATTEND Internal Medicine

== ENCOUNTER 2017-09-02 06:25 | Inpatient (IN) ==
[2017-09-02] MEDS ORDERED: DILTIAZEM 50 MG/10 ML VIAL IV STA (07:01)
[2017-09-02] MEDS ORDERED: DILTIAZEM INJ 100 MG in SODIUM CHLORIDE 0.9% 100 ML IV SCH (07:30)
[2017-09-02] MEDS ORDERED: SODIUM CHLORIDE 0.9% 1,000 ML IV STA (07:37)
[2017-09-02] MEDS ORDERED: ONDANSETRON 4 MG/2 ML VIAL ONE (08:09)
[2017-09-02] MEDS ORDERED: ONDANSETRON 4 MG/2 ML VIAL IV STA (08:10)
[2017-09-02 08:12] LABS: Basophils # 0.1 10*3/uL (0.0-0.2); Basophils % 0.7 % (0.0-0.8); Eosinophils # 0.1 10*3/uL (0.0-0.87); Eosinophils % 0.7 % (0.00-10.9); Hematocrit 44.1 VOL% (35.7-47.0); Hemoglobin 14.4 GM/DL (12.0-16.0); Immature Granulocytes % 0.3 %; Immature Granulocytes Absolute 0.03 #; Lymphocytes # 2.9 10*3/uL (1.4-4.0); Mean Corpuscular HGB Conc 32.7 GM/DL (32-36); Mean Corpuscular Hemoglobin 30 PG (27-34); Mean Corpuscular Volume 92.8 FL (87-102); Mean Platelet Volume 11.7 FL (9.6-12.0); Monocytes # 1.1 10*3/uL (0.11-0.8); Monocytes % 11.6 % (1.7-12.7); Neutrophils # 5.1 10*3/uL (1.4-7.4); Neutrophils % 55.7 % (38.7-73.9); Platelet Count 233 T/CUMM (130-400); Red Blood Count 4.75 MC/CUMM (3.8-5.5); Red Cell Distribution Width 11.8 % (9.3-17.3); White Blood Count 9.2 T/CUMM (4-12)
[2017-09-02 08:41] LABS: PT Patient Result 10.6 SECS; Partial Thromboplastin Time 23.9 SECS (0-40)
[2017-09-02 08:55] LABS: Alanine Aminotransferase 66 U/L (13-56); Albumin 3.6 G/DL (3.4-5.0); Alkaline Phosphatase 214 U/L (45-117); Aspartate Amino Transferase 45 U/L (0-37); Blood Urea Nitrogen 17 MG/DL (7-18); Calcium 8.9 MG/DL (8.5-10.1); Glucose 283 MG/DL (74-106); Osmolality,Calculated 290.4 MOS/KG (273-304); Potassium 3.7 MMOL/L (3.5-5.1); Sodium 140 MMOL/L (136-145); Thyroid Stimulating Hormone 0.053 uIU/ml (0.358-3.74); Total Protein 7.5 G/DL (6.4-8.3); Troponin I Only < 0.015 NG/ML (0.00-0.045)
[2017-09-02] MEDS ORDERED: NITROGLYCERIN SL 0.4 MG TABLET SL PRN (09:09)
[2017-09-02] MEDS ORDERED: LINACLOTIDE 145 MCG CAPSULE PO PRN (09:09)
[2017-09-02] MEDS ORDERED: ONDANSETRON 4 MG/2 ML VIAL IV PRN (09:27)
[2017-09-02] MEDS ORDERED: DEXTROSE 50% 25 GM/50 ML VIAL IV PRN (09:32)
[2017-09-02] MEDS ORDERED: GLUCAGON 1 MG VIAL IM PRN (09:32)
[2017-09-02] MEDS: INSULIN REGULAR 100 UNIT/ML SUBCUT SCH ×3 (12:50→21:20)
[2017-09-02] MEDS: ACETAMINOPHEN 325 MG TABLET PO PRN ×2 (12:51→21:10)
[2017-09-02] MEDS: INSULIN NPH/REGULAR 70/30 100 UNIT/ML SUBCUT SCH (16:15)
[2017-09-02] MEDS: GLIMEPIRIDE 4 MG TABLET PO SCH (21:10)
[2017-09-02] MEDS: APIXABAN 5 MG TABLET PO SCH (21:10)
[2017-09-03] MEDS: ACETAMINOPHEN 325 MG TABLET PO PRN (02:40)
[2017-09-03 06:03] LABS: Basophils % 0.4 % (0.0-0.8); Eosinophils # 0.1 10*3/uL (0.0-0.87); Eosinophils % 1.7 % (0.00-10.9); Hematocrit 40.5 VOL% (35.7-47.0); Hemoglobin 13.4 GM/DL (12.0-16.0); Immature Granulocytes % 0.3 %; Immature Granulocytes Absolute 0.02 #; Lymphocytes # 2.5 10*3/uL (1.4-4.0); Lymphocytes % 36.3 % (21.3-54.2); Mean Corpuscular HGB Conc 33.1 GM/DL (32-36); Mean Corpuscular Hemoglobin 30 PG (27-34); Mean Corpuscular Volume 91.4 FL (87-102); Mean Platelet Volume 11.3 FL (9.6-12.0); Monocytes # 0.9 10*3/uL (0.11-0.8); Monocytes % 12.4 % (1.7-12.7); Neutrophils # 3.4 10*3/uL (1.4-7.4); Neutrophils % 48.9 % (38.7-73.9); Platelet Count 241 T/CUMM (130-400); Red Blood Count 4.43 MC/CUMM (3.8-5.5); Red Cell Distribution Width 11.7 % (9.3-17.3); White Blood Count 6.9 T/CUMM (4-12)
[2017-09-03 06:20] LABS: Calcium 8.8 MG/DL (8.5-10.1); Osmolality,Calculated 288.4 MOS/KG (273-304); Potassium 3.9 MMOL/L (3.5-5.1)
[2017-09-03] MEDS ORDERED: DILTIAZEM CD 180 MG CAPSULE PO SCH (09:00)
[2017-09-03] MEDS ORDERED: NON-FORMULARY MEDICATION (Cinnamon Bark [Cinnamon] 1,000 MG) PO SCH (09:00)
[2017-09-03] MEDS: INSULIN NPH/REGULAR 70/30 100 UNIT/ML SUBCUT SCH ×2 (09:09→16:36)
[2017-09-03] MEDS: INSULIN REGULAR 100 UNIT/ML SUBCUT SCH ×4 (09:09→22:15)
[2017-09-03] MEDS: MULTIVITAMIN (CENTRUM) TABLET PO SCH (09:10)
[2017-09-03] MEDS: CALCIUM (CARBONATE) 500 MG TABLET PO SCH (09:10)
[2017-09-03] MEDS: PANTOPRAZOLE 40 MG TABLET PO SCH (09:10)
[2017-09-03] MEDS: ASCORBIC ACID 500 MG TABLET PO SCH (09:10)
[2017-09-03] MEDS: GLIMEPIRIDE 4 MG TABLET PO SCH ×2 (09:10→21:32)
[2017-09-03] MEDS: POTASSIUM GLUCONATE 500 MG TABLET PO SCH (09:10)
[2017-09-03] MEDS: ASPIRIN EC 325 MG TABLET PO SCH (09:10)
[2017-09-03] MEDS: APIXABAN 5 MG TABLET PO SCH ×2 (09:11→21:32)
[2017-09-03] MEDS: LOSARTAN 25 MG TABLET PO SCH (09:11)
[2017-09-03] MEDS: CHOLECALCIFEROL 5,000 UNIT TABLET PO SCH (09:11)
[2017-09-03] MEDS: ATORVASTATIN 20 MG TABLET PO SCH (09:11)
[2017-09-03] MEDS: FUROSEMIDE 20 MG TABLET PO SCH (09:11)
[2017-09-03 11:19] LABS: Apearance,Urine CLEAR (Clear); Bilirubin,Urine Negative (Negative); Blood, Urine Moderate mg/dL (Negative); Glucose,Urine (UA) >=500 mg/dL (Negative); Ketones,Urine 20 mg/dL (Negative); Mucus,Urine Occasional /LPF (Occasional); Nitrite,Urine Negative (Negative); Protein,Urine Negative; RBC,Urine 1 /HPF (0-4); Squamous Epithelial Cell,Urine Occasional /HPF (0-10); Urine Color Yellow (Yellow); Urine Specific Gravity 1.022 (1.001-1.035); Urine Urobilinogen < 2.0 EU/DL (0.2-1.0); WBC,Urine 4 /HPF (0-6)
[2017-09-04 05:19] LABS: Basophils # 0.1 10*3/uL (0.0-0.2); Basophils % 0.7 % (0.0-0.8); Eosinophils # 0.2 10*3/uL (0.0-0.87); Eosinophils % 2.9 % (0.00-10.9); Hematocrit 42.7 VOL% (35.7-47.0); Hemoglobin 14.2 GM/DL (12.0-16.0); Immature Granulocytes % 0.1 %; Immature Granulocytes Absolute 0.01 #; Lymphocytes # 2.8 10*3/uL (1.4-4.0); Lymphocytes % 38.3 % (21.3-54.2); Mean Corpuscular HGB Conc 33.3 GM/DL (32-36); Mean Corpuscular Hemoglobin 30 PG (27-34); Mean Platelet Volume 11.2 FL (9.6-12.0); Monocytes % 13.8 % (1.7-12.7); Neutrophils # 3.2 10*3/uL (1.4-7.4); Neutrophils % 44.2 % (38.7-73.9); Platelet Count 243 T/CUMM (130-400); Red Blood Count 4.69 MC/CUMM (3.8-5.5); Red Cell Distribution Width 11.9 % (9.3-17.3); White Blood Count 7.2 T/CUMM (4-12)
[2017-09-04 05:26] LABS: Calcium 9.1 MG/DL (8.5-10.1); Osmolality,Calculated 285.3 MOS/KG (273-304); Potassium 3.8 MMOL/L (3.5-5.1)
[2017-09-04] MEDS: INSULIN NPH/REGULAR 70/30 100 UNIT/ML SUBCUT SCH ×2 (07:58→17:35)
[2017-09-04] MEDS: INSULIN REGULAR 100 UNIT/ML SUBCUT SCH ×5 (07:58→23:56)
[2017-09-04] MEDS: GLIMEPIRIDE 4 MG TABLET PO SCH ×2 (10:20→21:17)
[2017-09-04] MEDS: MULTIVITAMIN (CENTRUM) TABLET PO SCH (10:20)
[2017-09-04] MEDS: PANTOPRAZOLE 40 MG TABLET PO SCH (10:21)
[2017-09-04] MEDS: POTASSIUM GLUCONATE 500 MG TABLET PO SCH (10:21)
[2017-09-04] MEDS: ATORVASTATIN 20 MG TABLET PO SCH (10:21)
[2017-09-04] MEDS: CALCIUM (CARBONATE) 500 MG TABLET PO SCH (10:21)
[2017-09-04] MEDS: ASCORBIC ACID 500 MG TABLET PO SCH (10:21)
[2017-09-04] MEDS: CHOLECALCIFEROL 5,000 UNIT TABLET PO SCH (10:21)
[2017-09-04] MEDS: APIXABAN 5 MG TABLET PO SCH (14:09)
[2017-09-04] MEDS: ASPIRIN EC 325 MG TABLET PO SCH (14:09)
[2017-09-04] MEDS: DILTIAZEM CD 240 MG CAPSULE PO SCH (15:12)
[2017-09-04] MEDS: FUROSEMIDE 20 MG TABLET PO SCH (15:12)
[2017-09-04] MEDS: LOSARTAN 25 MG TABLET PO SCH (15:12)
[2017-09-05 05:24] LABS: Basophils # 0.1 10*3/uL (0.0-0.2); Basophils % 0.9 % (0.0-0.8); Eosinophils # 0.2 10*3/uL (0.0-0.87); Eosinophils % 3.3 % (0.00-10.9); Hematocrit 39.4 VOL% (35.7-47.0); Immature Granulocytes % 0.2 %; Immature Granulocytes Absolute 0.01 #; Lymphocytes # 2.3 10*3/uL (1.4-4.0); Lymphocytes % 40.4 % (21.3-54.2); Mean Corpuscular Hemoglobin 31 PG (27-34); Mean Corpuscular Volume 92.7 FL (87-102); Mean Platelet Volume 10.9 FL (9.6-12.0); Monocytes % 17.6 % (1.7-12.7); Neutrophils # 2.1 10*3/uL (1.4-7.4); Neutrophils % 37.6 % (38.7-73.9); Platelet Count 232 T/CUMM (130-400); Red Blood Count 4.25 MC/CUMM (3.8-5.5); Red Cell Distribution Width 11.8 % (9.3-17.3); White Blood Count 5.7 T/CUMM (4-12)
[2017-09-05 05:46] LABS: Calcium 8.9 MG/DL (8.5-10.1); Potassium 3.8 MMOL/L (3.5-5.1)
[2017-09-05 06:02] LABS: Atypical Lymphocytes Few; Band Neutrophils 3 % (0-10); Eosinophils 2 % (0-10); Lymphocytes 37 % (20-55); Segmented Neutrophils 43 % (50-85); Total Cells Counted 100
[2017-09-05 06:03] LABS: Microcytosis Slight; Platelet Estimate Normal
[2017-09-05] MEDS: CHOLECALCIFEROL 5,000 UNIT TABLET PO SCH (09:19)
[2017-09-05] MEDS: POTASSIUM GLUCONATE 500 MG TABLET PO SCH (09:19)
[2017-09-05] MEDS: ASPIRIN EC 81 MG TABLET PO SCH (09:19)
[2017-09-05] MEDS: MULTIVITAMIN (CENTRUM) TABLET PO SCH (09:19)
[2017-09-05] MEDS: ASCORBIC ACID 500 MG TABLET PO SCH (09:19)
[2017-09-05] MEDS: PANTOPRAZOLE 40 MG TABLET PO SCH (09:19)
[2017-09-05] MEDS: GLIMEPIRIDE 4 MG TABLET PO SCH ×2 (09:19→21:23)
[2017-09-05] MEDS: DILTIAZEM CD 240 MG CAPSULE PO SCH (09:20)
[2017-09-05] MEDS: ATORVASTATIN 20 MG TABLET PO SCH (09:20)
[2017-09-05] MEDS: INSULIN REGULAR 100 UNIT/ML SUBCUT SCH ×4 (09:20→21:23)
[2017-09-05] MEDS: CALCIUM (CARBONATE) 500 MG TABLET PO SCH (09:20)
[2017-09-05] MEDS: FUROSEMIDE 20 MG TABLET PO SCH (09:20)
[2017-09-05] MEDS: LOSARTAN 25 MG TABLET PO SCH (09:20)
[2017-09-05] MEDS: INSULIN NPH/REGULAR 70/30 100 UNIT/ML SUBCUT SCH ×2 (09:20→17:29)
[2017-09-06 05:33] LABS: Calcium 8.6 MG/DL (8.5-10.1); Potassium 3.3 MMOL/L (3.5-5.1)
[2017-09-06] MEDS ORDERED: LIDOCAINE 1% 5 ML VIAL ONE (07:37)
[2017-09-06] MEDS ORDERED: PROPOFOL 200 MG/20 ML VIAL IV ONE (07:37)
[2017-09-06] MEDS: INSULIN REGULAR 100 UNIT/ML SUBCUT SCH ×4 (07:40→21:31)
[2017-09-06] MEDS ORDERED: GLUCAGON 1 MG VIAL IM PRN (08:21)
[2017-09-06] MEDS ORDERED: DEXTROSE 50% 25 GM/50 ML VIAL IV PRN (08:21)
[2017-09-06] MEDS: MULTIVITAMIN (CENTRUM) TABLET PO SCH (09:25)
[2017-09-06] MEDS: POTASSIUM GLUCONATE 500 MG TABLET PO SCH (09:25)
[2017-09-06] MEDS: CHOLECALCIFEROL 5,000 UNIT TABLET PO SCH (09:25)
[2017-09-06] MEDS: PANTOPRAZOLE 40 MG TABLET PO SCH (09:26)
[2017-09-06] MEDS: ASPIRIN EC 81 MG TABLET PO SCH (09:26)
[2017-09-06] MEDS: FUROSEMIDE 20 MG TABLET PO SCH (09:26)
[2017-09-06] MEDS: GLIMEPIRIDE 4 MG TABLET PO SCH ×2 (09:26→21:19)
[2017-09-06] MEDS: ASCORBIC ACID 500 MG TABLET PO SCH (09:26)
[2017-09-06] MEDS: LOSARTAN 25 MG TABLET PO SCH (09:26)
[2017-09-06] MEDS: ATORVASTATIN 20 MG TABLET PO SCH (09:26)
[2017-09-06] MEDS: DILTIAZEM CD 240 MG CAPSULE PO SCH (09:26)
[2017-09-06] MEDS: CALCIUM (CARBONATE) 500 MG TABLET PO SCH (09:26)
[2017-09-06] MEDS: INSULIN NPH/REGULAR 70/30 100 UNIT/ML SUBCUT SCH ×2 (09:27→16:33)
[2017-09-06] MEDS ORDERED: MAGNESIUM SULF RIDER 2 GM in PREMIX 1 EACH IV PRN (10:21)
[2017-09-06] MEDS ORDERED: POTASSIUM CHLORIDE RIDER 10 MEQ in PREMIX 1 EACH IV PRN (10:21)
[2017-09-06] MEDS: POTASSIUM CHLORIDE 20 MEQ TABLET PO PRN ×3 (10:35→14:43)
[2017-09-06] MEDS: SODIUM CHLORIDE 0.45% 1,000 ML IV SCH ×2 (13:10→22:50)
[2017-09-06] MEDS: LOSARTAN 50 MG TABLET PO SCH (16:32)
[2017-09-07 05:24] LABS: Basophils % 0.5 % (0.0-0.8); Eosinophils # 0.2 10*3/uL (0.0-0.87); Eosinophils % 2.6 % (0.00-10.9); Hematocrit 39.3 VOL% (35.7-47.0); Hemoglobin 12.6 GM/DL (12.0-16.0); Immature Granulocytes % 0.3 %; Immature Granulocytes Absolute 0.02 #; Lymphocytes # 2.1 10*3/uL (1.4-4.0); Lymphocytes % 32.1 % (21.3-54.2); Mean Corpuscular HGB Conc 32.1 GM/DL (32-36); Mean Corpuscular Hemoglobin 30 PG (27-34); Mean Corpuscular Volume 93.6 FL (87-102); Mean Platelet Volume 12.4 FL (9.6-12.0); Monocytes # 0.7 10*3/uL (0.11-0.8); Monocytes % 10.9 % (1.7-12.7); Neutrophils # 3.6 10*3/uL (1.4-7.4); Neutrophils % 53.6 % (38.7-73.9); Platelet Count 125 T/CUMM (130-400); Red Cell Distribution Width 11.9 % (9.3-17.3); White Blood Count 6.6 T/CUMM (4-12)
[2017-09-07 05:47] LABS: Calcium 9.2 MG/DL (8.5-10.1); Osmolality,Calculated 288.7 MOS/KG (273-304); Potassium 3.8 MMOL/L (3.5-5.1)
[2017-09-07 05:53] LABS: Hypochromasia 1+
[2017-09-07 05:54] LABS: Microcytosis Slight
[2017-09-07] MEDS: INSULIN NPH/REGULAR 70/30 100 UNIT/ML SUBCUT SCH ×2 (07:30→17:56)
[2017-09-07] MEDS: INSULIN REGULAR 100 UNIT/ML SUBCUT SCH ×4 (07:30→22:34)
[2017-09-07] MEDS: SODIUM CHLORIDE 0.45% 1,000 ML IV SCH ×2 (09:19→22:28)
[2017-09-07] MEDS ORDERED: diphenhydrAMINE CAP 25 MG CAPSULE PO ONE (13:00)
[2017-09-07] MEDS ORDERED: DIAZEPAM 5 MG TABLET PO ONE (13:00)
[2017-09-07] MEDS ORDERED: ASPIRIN 325 MG TABLET PO ONE (13:00)
[2017-09-07] MEDS: GLIMEPIRIDE 4 MG TABLET PO SCH ×2 (13:50→22:34)
[2017-09-07] MEDS: ASPIRIN EC 81 MG TABLET PO SCH (13:50)
[2017-09-07] MEDS: ASCORBIC ACID 500 MG TABLET PO SCH (13:51)
[2017-09-07] MEDS: CHOLECALCIFEROL 5,000 UNIT TABLET PO SCH (13:51)
[2017-09-07] MEDS: MULTIVITAMIN (CENTRUM) TABLET PO SCH (13:51)
[2017-09-07] MEDS: CALCIUM (CARBONATE) 500 MG TABLET PO SCH (13:51)
[2017-09-07] MEDS: DILTIAZEM CD 240 MG CAPSULE PO SCH (14:24)
[2017-09-07] MEDS: ATORVASTATIN 20 MG TABLET PO SCH (14:24)
[2017-09-07] MEDS: POTASSIUM GLUCONATE 500 MG TABLET PO SCH (14:24)
[2017-09-07] MEDS: LOSARTAN 50 MG TABLET PO SCH (14:25)
[2017-09-07] MEDS: PANTOPRAZOLE 40 MG TABLET PO SCH (14:25)
[2017-09-07] MEDS: FUROSEMIDE 20 MG TABLET PO SCH (14:25)
[2017-09-07] MEDS ORDERED: HEPARIN/NACL 0.9% 2 UNITS/ML 1,000 ML IV ONE (14:31)
[2017-09-07] MEDS ORDERED: LIDOCAINE 1% 20 ML VIAL ONE (14:56)
[2017-09-07] MEDS ORDERED: VERAPAMIL 5 MG/2 ML VIAL ONE (14:58)
[2017-09-07] MEDS ORDERED: MIDAZOLAM 2 MG/2 ML VIAL ONE (14:58)
[2017-09-07] MEDS ORDERED: fentaNYL 100 MCG/2 ML VIAL ONE (14:58)
[2017-09-07] MEDS ORDERED: NITROGLYCERIN DRIP 50 MG/250 ML BOTTLE IV ONE (14:58)
[2017-09-07] MEDS ORDERED: ENOXAPARIN 60 MG/0.6 ML SYRINGE ONE (15:30)
[2017-09-07] MEDS ORDERED: hydrALAZINE 20 MG/1 ML VIAL ONE (15:38)
[2017-09-07] MEDS ORDERED: MORPHINE 10 MG/1 ML VIAL ONE (15:43)
[2017-09-07] MEDS ORDERED: cloNIDine 0.1 MG TABLET ONE ×3 (15:45→16:07)
[2017-09-07] MEDS ORDERED: NITROGLYCERIN DRIP 50 MG/250 ML BOTTLE IV PRN (16:29)
[2017-09-07] MEDS ORDERED: HYDROmorphone 2 MG/1 ML VIAL IV PRN (17:29)
[2017-09-07] MEDS ORDERED: MORPHINE 4 MG/1 ML VIAL IV PRN (17:29)
[2017-09-07] MEDS ORDERED: cloNIDine 0.1 MG TABLET PO PRN (17:32)
[2017-09-07] MEDS ORDERED: amLODIPine 5 MG TABLET PO ONE (17:33)
[2017-09-07 18:24] LABS: Basophils % 0.4 % (0.0-0.8); Eosinophils # 0.1 10*3/uL (0.0-0.87); Eosinophils % 1.9 % (0.00-10.9); Hematocrit 36.8 VOL% (35.7-47.0); Hemoglobin 12.5 GM/DL (12.0-16.0); Immature Granulocytes % 0.2 %; Immature Granulocytes Absolute 0.01 #; Lymphocytes # 1.9 10*3/uL (1.4-4.0); Mean Corpuscular Hemoglobin 30 PG (27-34); Mean Corpuscular Volume 89.3 FL (87-102); Mean Platelet Volume 11.5 FL (9.6-12.0); Monocytes # 0.5 10*3/uL (0.11-0.8); Monocytes % 9.3 % (1.7-12.7); Neutrophils # 3.1 10*3/uL (1.4-7.4); Neutrophils % 54.2 % (38.7-73.9); Platelet Count 229 T/CUMM (130-400); Red Blood Count 4.12 MC/CUMM (3.8-5.5); Red Cell Distribution Width 11.8 % (9.3-17.3); White Blood Count 5.7 T/CUMM (4-12)
[2017-09-08 05:41] LABS: Basophils % 0.5 % (0.0-0.8); Eosinophils # 0.2 10*3/uL (0.0-0.87); Eosinophils % 2.7 % (0.00-10.9); Hematocrit 36.3 VOL% (35.7-47.0); Hemoglobin 12.1 GM/DL (12.0-16.0); Immature Granulocytes % 0.2 %; Immature Granulocytes Absolute 0.01 #; Lymphocytes # 2.1 10*3/uL (1.4-4.0); Lymphocytes % 32.8 % (21.3-54.2); Mean Corpuscular HGB Conc 33.3 GM/DL (32-36); Mean Corpuscular Hemoglobin 30 PG (27-34); Mean Platelet Volume 11.3 FL (9.6-12.0); Monocytes # 0.6 10*3/uL (0.11-0.8); Monocytes % 10.2 % (1.7-12.7); Neutrophils # 3.4 10*3/uL (1.4-7.4); Neutrophils % 53.6 % (38.7-73.9); Platelet Count 220 T/CUMM (130-400); Red Blood Count 3.99 MC/CUMM (3.8-5.5); Red Cell Distribution Width 11.8 % (9.3-17.3); White Blood Count 6.3 T/CUMM (4-12)
[2017-09-08 06:09] LABS: Calcium 8.9 MG/DL (8.5-10.1); Osmolality,Calculated 285.3 MOS/KG (273-304); Potassium 3.8 MMOL/L (3.5-5.1)
[2017-09-08] MEDS ORDERED: amLODIPine 5 MG TABLET PO SCH (09:00)
[2017-09-08] MEDS: DILTIAZEM CD 240 MG CAPSULE PO SCH (09:04)
[2017-09-08] MEDS: GLIMEPIRIDE 4 MG TABLET PO SCH ×2 (09:04→21:01)
[2017-09-08] MEDS: FUROSEMIDE 20 MG TABLET PO SCH (09:05)
[2017-09-08] MEDS: PANTOPRAZOLE 40 MG TABLET PO SCH (09:05)
[2017-09-08] MEDS: CALCIUM (CARBONATE) 500 MG TABLET PO SCH (09:05)
[2017-09-08] MEDS: ASPIRIN EC 81 MG TABLET PO SCH (09:05)
[2017-09-08] MEDS: LOSARTAN 50 MG TABLET PO SCH (09:05)
[2017-09-08] MEDS: ASCORBIC ACID 500 MG TABLET PO SCH (09:05)
[2017-09-08] MEDS: CHOLECALCIFEROL 5,000 UNIT TABLET PO SCH (09:05)
[2017-09-08] MEDS: POTASSIUM GLUCONATE 500 MG TABLET PO SCH (09:05)
[2017-09-08] MEDS: INSULIN NPH/REGULAR 70/30 100 UNIT/ML SUBCUT SCH ×2 (09:06→17:05)
[2017-09-08] MEDS: INSULIN REGULAR 100 UNIT/ML SUBCUT SCH ×4 (09:06→21:01)
[2017-09-08] MEDS: MULTIVITAMIN (CENTRUM) TABLET PO SCH (09:37)
[2017-09-08] MEDS: ATORVASTATIN 20 MG TABLET PO SCH (09:37)
[2017-09-08] MEDS ORDERED: LOSARTAN 25 MG TABLET PO SCH (14:20)
[2017-09-08] MEDS: SODIUM CHLORIDE 0.45% 1,000 ML IV SCH (21:07)
[2017-09-09 07:37] VITALS: BP 133/64
[2017-09-09] MEDS: INSULIN REGULAR 100 UNIT/ML SUBCUT SCH (08:24)
[2017-09-09] MEDS: INSULIN NPH/REGULAR 70/30 100 UNIT/ML SUBCUT SCH (08:24)
[2017-09-09] MEDS: MULTIVITAMIN (CENTRUM) TABLET PO SCH (08:26)
[2017-09-09] MEDS: CHOLECALCIFEROL 5,000 UNIT TABLET PO SCH (08:26)
[2017-09-09] MEDS: POTASSIUM GLUCONATE 500 MG TABLET PO SCH (08:27)
[2017-09-09] MEDS: ATORVASTATIN 20 MG TABLET PO SCH (08:27)
[2017-09-09] MEDS: GLIMEPIRIDE 4 MG TABLET PO SCH (08:28)
[2017-09-09] MEDS: DILTIAZEM CD 240 MG CAPSULE PO SCH (08:28)
[2017-09-09] MEDS: CALCIUM (CARBONATE) 500 MG TABLET PO SCH (08:28)
[2017-09-09] MEDS: PANTOPRAZOLE 40 MG TABLET PO SCH (08:29)
[2017-09-09] MEDS: ASCORBIC ACID 500 MG TABLET PO SCH (08:29)
[2017-09-09] MEDS: FUROSEMIDE 20 MG TABLET PO SCH (08:29)
[2017-09-09] MEDS: ASPIRIN EC 81 MG TABLET PO SCH (08:29)
[2017-09-09] MEDS ORDERED: ISOSORBIDE MONONITRATE 60 MG TABLET PO SCH (09:00)
== END 2017-09-09 12:10 | disposition home or self-care (01) | DRG 287 ==
LOC: N.ED 06:25 → SUATTDRO 09:27 → N.EDINP 09:27 → N.TELEN 10:19 → N.CC 09-07 16:48 → N.TELES 09-08 16:02
PROVIDERS: ATTEND Internal Medicine
PROC: CLCCHCL (ICD-10-PCS; 2017-09-07 16:15)

== ENCOUNTER 2019-12-30 13:09 | Inpatient (IN) ==
[2019-12-30 13:52] LABS: Basophils % 0.2 % (0.0-0.8); Hematocrit 43.7 VOL% (35.7-47.0); Hemoglobin 14.3 GM/DL (12.0-16.0); Immature Granulocytes % 0.4 %; Immature Granulocytes Absolute 0.02 #; Lymphocytes % 37.4 % (21.3-54.2); Mean Corpuscular HGB Conc 32.7 GM/DL (32-36); Mean Corpuscular Volume 91.8 FL (87-102); Mean Platelet Volume 11.2 FL (9.6-12.0); Monocytes % 11.8 % (1.7-12.7); Neutrophils % 50.2 % (38.7-73.9); Platelet Count 248 T/CUMM (130-400); Red Blood Count 4.76 MC/CUMM (3.8-5.5); Red Cell Distribution Width 12.3 % (9.3-17.3); White Blood Count 5.2 T/CUMM (4-12)
[2019-12-30 14:03] LABS: PT Patient Result 10.8 SECS (9.8-11.9); Partial Thromboplastin Time 26.5 SECS (23.9-33.8)
[2019-12-30 14:19] LABS: Albumin 3.6 G/DL (3.4-5.0); Bilirubin,Total 0.5 MG/DL (0.2-1.0); Calcium 9.1 MG/DL (8.5-10.1); Osmolality,Calculated 283.8 MOS/KG (273-304); Total Protein 7.5 G/DL (6.4-8.3)
[2019-12-30 14:30] LABS: Ferritin 149.4 ng/ml (8-252)
[2019-12-30 14:51] LABS: Bacteria,Urine Occasional /HPF (Few); Bilirubin,Urine Negative (Negative); Blood, Urine Negative (Negative); Glucose,Urine (UA) >=500 mg/dL (Negative); Hyaline Casts,Urine 1 /LPF (0-3); Ketones,Urine 5 mg/dL (Negative); Mucus,Urine Few /LPF (Occasional); Nitrite,Urine Negative (Negative); Protein,Urine 30 MG/DL; RBC,Urine 3 /HPF (0-4); Squamous Epithelial Cell,Urine Occasional /HPF (0-10); Urine Appearance Slightly Hazy (Clear); Urine Color Amber (Yellow); Urine Specific Gravity 1.025 (1.001-1.035); WBC,Urine 48 /HPF (0-6)
[2019-12-30] MEDS ORDERED: DEXAMETHASONE 4 MG/1 ML VIAL IV STA (15:32)
[2019-12-30] MEDS ORDERED: CETIRIZINE 10 MG TABLET PO STA (15:32)
[2019-12-30] MEDS ORDERED: FAMOTIDINE 20 MG/2 ML VIAL IV STA (15:32)
[2019-12-30] MEDS ORDERED: FLUTICASONE 50 MCG NASAL SPRAY 16 GM BOTTLE BOTH NARES PRN (16:18)
[2019-12-30] MEDS ORDERED: LINACLOTIDE 145 MCG CAPSULE PO PRN (16:18)
[2019-12-30] MEDS ORDERED: traMADol 50 MG TABLET PO PRN (16:18)
[2019-12-30] MEDS ORDERED: cefTRIAXone 1,000 MG in SYRINGE 1 EACH IV STA (16:18)
[2019-12-30] MEDS ORDERED: NITROGLYCERIN SL 0.4 MG TABLET SL PRN (16:18)
[2019-12-30] MEDS: AZITHROMYCIN INJ 500 MG in SODIUM CHLORIDE 0.9% 250 ML IV SCH (16:58)
[2019-12-30] MEDS: ENOXAPARIN 60 MG/0.6 ML SYRINGE SUBCUT SCH (16:59)
[2019-12-30 18:15] LABS: ABG Base Excess 2.6 MMOL/L (-2.5-2.5); ABG HCO3 25.1 MMOL/L (20-26); ABG Oxygen Saturation 27.4 % (95-100); ABG PCO2 53.2 MM HG (35-48); ABG PH 7.352 (7.35-7.45); ABG TCO2 26.3 MMOL/L (23-27)
[2019-12-30 18:17] LABS: ABG PO2 19.8 MM HG (80-95)
[2019-12-30] MEDS: GLIMEPIRIDE 4 MG TABLET PO SCH (21:19)
[2019-12-30] MEDS: PANTOPRAZOLE 40 MG TABLET PO SCH (21:19)
[2019-12-30] MEDS: MECLIZINE 25 MG TABLET PO SCH (21:19)
[2019-12-31] MEDS: ENOXAPARIN 60 MG/0.6 ML SYRINGE SUBCUT SCH ×2 (04:07→17:36)
[2019-12-31 06:09] LABS: Hemoglobin 13.3 GM/DL (12.0-16.0); Immature Granulocytes % 0.3 %; Immature Granulocytes Absolute 0.01 #; Lymphocytes % 27.7 % (21.3-54.2); Mean Corpuscular HGB Conc 33.3 GM/DL (32-36); Mean Corpuscular Volume 90.3 FL (87-102); Mean Platelet Volume 11.8 FL (9.6-12.0); Monocytes % 5.4 % (1.7-12.7); Neutrophils % 66.6 % (38.7-73.9); Platelet Count 208 T/CUMM (130-400); Red Blood Count 4.43 MC/CUMM (3.8-5.5); Red Cell Distribution Width 11.9 % (9.3-17.3); White Blood Count 3.7 T/CUMM (4-12)
[2019-12-31 06:27] LABS: Albumin 3.1 G/DL (3.4-5.0); Bilirubin,Total 0.4 MG/DL (0.2-1.0); Calcium 9.1 MG/DL (8.5-10.1); Ferritin 153.3 ng/ml (8-252); Osmolality,Calculated 284.8 MOS/KG (273-304); Total Protein 7.2 G/DL (6.4-8.3)
[2019-12-31 06:28] LABS: Risk Ratio 2.14; VLDL CHOLESTEROL 15.8 MG/DL
[2019-12-31 07:27] LABS: Sedimentation Rate-Westergren 47 MM/HR (0-30)
[2019-12-31] MEDS: FEXOFENADINE 180 MG TABLET PO SCH (09:09)
[2019-12-31] MEDS: DILTIAZEM CD 240 MG CAPSULE PO SCH (09:10)
[2019-12-31] MEDS: ASPIRIN EC 81 MG TABLET PO SCH (09:10)
[2019-12-31] MEDS: GLIMEPIRIDE 4 MG TABLET PO SCH ×2 (09:10→20:50)
[2019-12-31] MEDS: DEXAMETHASONE 4 MG/1 ML VIAL IV SCH (09:11)
[2019-12-31] MEDS: LOSARTAN 25 MG TABLET PO SCH (09:11)
[2019-12-31] MEDS: FUROSEMIDE 20 MG TABLET PO SCH (09:11)
[2019-12-31] MEDS: POTASSIUM CHLORIDE 20 MEQ TABLET PO SCH (09:11)
[2019-12-31] MEDS: ATORVASTATIN 20 MG TABLET PO SCH (09:11)
[2019-12-31] MEDS: MULTIVITAMIN (CENTRUM) TABLET PO SCH (09:11)
[2019-12-31] MEDS: PARoxetine 20 MG TABLET PO SCH (09:12)
[2019-12-31] MEDS: PANTOPRAZOLE 40 MG TABLET PO SCH ×2 (09:13→20:50)
[2019-12-31] MEDS: CHOLECALCIFEROL 5,000 UNIT TABLET PO SCH (09:13)
[2019-12-31] MEDS: MONTELUKAST 10 MG TABLET PO SCH (09:13)
[2019-12-31] MEDS: INSULIN NPH/REGULAR 70/30 100 UNIT/ML SUBCUT SCH (09:22)
[2019-12-31] MEDS ORDERED: GLUCAGON 1 MG VIAL IM PRN (09:29)
[2019-12-31] MEDS ORDERED: DEXTROSE 50% 25 GM/50 ML VIAL IV PRN (09:29)
[2019-12-31] MEDS ORDERED: SODIUM CHLORIDE 0.9% 1,000 ML IV PRN (10:07)
[2019-12-31] MEDS ORDERED: ONDANSETRON 4 MG/2 ML VIAL IV PRN (12:45)
[2019-12-31] MEDS ORDERED: ACETAMINOPHEN 325 MG TABLET PO PRN (12:45)
[2019-12-31] MEDS: cefTRIAXone 1,000 MG in SYRINGE 1 EACH IV SCH (17:36)
[2019-12-31] MEDS: AZITHROMYCIN INJ 500 MG in SODIUM CHLORIDE 0.9% 250 ML IV SCH (17:36)
[2019-12-31] MEDS: INSULIN REGULAR 100 UNIT/ML SUBCUT SCH (20:49)
[2019-12-31] MEDS: MECLIZINE 25 MG TABLET PO SCH (20:50)
[2020-01-01 03:41] LABS: Basophils % 0.1 % (0.0-0.8); Hematocrit 40.2 VOL% (35.7-47.0); Immature Granulocytes % 0.6 %; Immature Granulocytes Absolute 0.05 #; Lymphocytes # 1.1 10*3/uL (1.4-4.0); Lymphocytes % 12.5 % (21.3-54.2); Mean Corpuscular HGB Conc 32.3 GM/DL (32-36); Mean Corpuscular Volume 90.7 FL (87-102); Mean Platelet Volume 11.9 FL (9.6-12.0); Monocytes % 8.8 % (1.7-12.7); Platelet Count 213 T/CUMM (130-400); Red Blood Count 4.43 MC/CUMM (3.8-5.5); Red Cell Distribution Width 11.9 % (9.3-17.3)
[2020-01-01] MEDS: ENOXAPARIN 60 MG/0.6 ML SYRINGE SUBCUT SCH (03:49)
[2020-01-01 04:13] LABS: Alanine Aminotransferase 26 U/L (13-56); Alkaline Phosphatase 196 U/L (45-117); Aspartate Amino Transferase 12 U/L (0-37); Blood Urea Nitrogen 28 MG/DL (7-18); Estimated Glom Filtration Rate 83 ML/MIN; Ferritin 158.2 ng/ml (8-252); Glucose 247 MG/DL (74-106); Osmolality,Calculated 290.5 MOS/KG (273-304)
[2020-01-01 07:02] LABS: Sedimentation Rate-Westergren 33 MM/HR (0-30)
[2020-01-01] MEDS: INSULIN REGULAR 100 UNIT/ML SUBCUT SCH ×2 (10:30→12:35)
[2020-01-01] MEDS: CHOLECALCIFEROL 5,000 UNIT TABLET PO SCH (10:30)
[2020-01-01] MEDS: INSULIN NPH/REGULAR 70/30 100 UNIT/ML SUBCUT SCH (10:31)
[2020-01-01] MEDS: DEXAMETHASONE 4 MG/1 ML VIAL IV SCH (10:31)
[2020-01-01] MEDS: FEXOFENADINE 180 MG TABLET PO SCH (10:32)
[2020-01-01] MEDS: MULTIVITAMIN (CENTRUM) TABLET PO SCH (10:32)
[2020-01-01] MEDS: FUROSEMIDE 20 MG TABLET PO SCH (10:32)
[2020-01-01] MEDS: MONTELUKAST 10 MG TABLET PO SCH (10:32)
[2020-01-01] MEDS: GLIMEPIRIDE 4 MG TABLET PO SCH (10:33)
[2020-01-01] MEDS: PANTOPRAZOLE 40 MG TABLET PO SCH (10:33)
[2020-01-01] MEDS: POTASSIUM CHLORIDE 20 MEQ TABLET PO SCH (10:33)
[2020-01-01] MEDS: ASPIRIN EC 81 MG TABLET PO SCH (10:33)
[2020-01-01] MEDS: ATORVASTATIN 20 MG TABLET PO SCH (10:34)
[2020-01-01] MEDS: LOSARTAN 25 MG TABLET PO SCH (10:34)
[2020-01-01] MEDS: DILTIAZEM CD 240 MG CAPSULE PO SCH (10:34)
[2020-01-01 14:01] VITALS: BP 124/64
[2020-01-01] MEDS: PARoxetine 20 MG TABLET PO SCH (15:10)
[2020-01-01] MEDS: cefTRIAXone 1,000 MG in SYRINGE 1 EACH IV SCH (16:01)
[2020-01-01] MEDS ORDERED: LACTOBACILLUS RHAMNOSUS GG CAPSULE PO SCH (21:00)
[2020-01-03 20:11] LABS: Specimen Source SPUTUM
== END 2020-01-01 16:42 | disposition home health service (06) | DRG 177 ==
LOC: N.ED 13:09 → N.EDINP 17:16 → N.2E 18:12
PROVIDERS: ADMIT Internal Medicine; ATTEND Internal Medicine

== ENCOUNTER 2022-01-21 11:36 | Observation (INO) ==
[2022-01-21] MEDS ORDERED: KETOROLAC 30 MG/1 ML VIAL IV STA (13:32)
[2022-01-21 13:41] LABS: Bilirubin,Urine Negative (Negative); Blood, Urine Negative (Negative); Glucose,Urine (UA) 150 mg/dL (Negative); Ketones,Urine Negative (Negative); Mucus,Urine Few /LPF (Occasional); Nitrite,Urine Negative (Negative); Protein,Urine Negative (Negative); RBC,Urine 4 /HPF (0-4); Squamous Epithelial Cell,Urine Occasional /HPF (0-10); Urine Appearance Slightly Hazy (Clear); Urine Color Yellow (Yellow); Urine Specific Gravity 1.023 (1.001-1.035)
[2022-01-21 13:42] LABS: Basophils % 0.5 % (0.0-0.8); Eosinophils # 0.2 10*3/uL (0.0-0.87); Hematocrit 44.7 VOL% (35.7-47.0); Hemoglobin 14.5 GM/DL (12.0-16.0); Immature Granulocytes % 0.2 %; Immature Granulocytes Absolute 0.02 #; Lymphocytes # 2.5 10*3/uL (1.4-4.0); Lymphocytes % 29.8 % (21.3-54.2); Mean Corpuscular HGB Conc 32.4 GM/DL (32-36); Mean Corpuscular Volume 93.1 FL (87-102); Mean Platelet Volume 10.9 FL (9.6-12.0); Monocytes # 0.6 10*3/uL (0.11-0.8); Monocytes % 6.7 % (1.7-12.7); Neutrophils % 60.8 % (38.7-73.9); Platelet Count 289 T/CUMM (130-400); Red Cell Distribution Width 12.2 % (9.3-17.3); White Blood Count 8.4 T/CUMM (4-12)
[2022-01-21 14:04] LABS: Albumin 3.5 G/DL (3.4-5.0); Bilirubin,Total 0.4 MG/DL (0.20-1.00); Calcium 9.3 MG/DL (8.5-10.1); Osmolality,Calculated 293.8 MOS/KG (273-304); Potassium 4.3 MMOL/L (3.5-5.1); Total Protein 7.1 G/DL (6.4-8.2)
[2022-01-21 14:15] LABS: PT Patient Result 10.7 SECS (10.1-12.1); Partial Thromboplastin Time 25.8 SECS (23.7-32.9)
[2022-01-21] MEDS ORDERED: SODIUM CHLORIDE 0.9% 1,000 ML IV STA (15:03)
[2022-01-21] MEDS ORDERED: cefTRIAXone 1,000 MG in SODIUM CHLORIDE 0.9% 100 ML IV STA (15:07)
[2022-01-21] MEDS ORDERED: GLUCAGON 1 MG VIAL IM PRN (15:39)
[2022-01-21] MEDS ORDERED: BISACODYL 5 MG TABLET PO PRN (15:39)
[2022-01-21] MEDS ORDERED: ONDANSETRON 4 MG/2 ML VIAL IV PRN (15:39)
[2022-01-21] MEDS ORDERED: SIMETHICONE CHEW 125 MG TABLET PO PRN (15:39)
[2022-01-21] MEDS ORDERED: DOCUSATE SODIUM 100 MG CAPSULE PO PRN (15:39)
[2022-01-21] MEDS ORDERED: DEXTROSE 10% 250 ML BAG IV PRN (15:48)
[2022-01-21] MEDS ORDERED: ENOXAPARIN 40 MG/0.4 ML SYRINGE SUBCUT SCH (17:00)
[2022-01-21] MEDS ORDERED: DILTIAZEM CD 180 MG CAPSULE PO SCH (19:00)
[2022-01-21] MEDS: LACTATED RINGERS 1,000 ML IV SCH (19:28)
[2022-01-21] MEDS: INSULIN LISPRO 100 UNIT/ML SUBCUT SCH ×2 (19:28→20:23)
[2022-01-22] MEDS: LACTATED RINGERS 1,000 ML IV SCH (05:45)
[2022-01-22 06:00] LABS: Basophils % 0.6 % (0.0-0.8); Eosinophils # 0.2 10*3/uL (0.0-0.87); Eosinophils % 2.8 % (0.00-10.9); Hematocrit 43.1 VOL% (35.7-47.0); Hemoglobin 13.2 GM/DL (12.0-16.0); Immature Granulocytes % 0.1 %; Immature Granulocytes Absolute 0.01 #; Lymphocytes # 2.7 10*3/uL (1.4-4.0); Lymphocytes % 37.7 % (21.3-54.2); Mean Corpuscular HGB Conc 30.6 GM/DL (32-36); Mean Corpuscular Volume 97.3 FL (87-102); Mean Platelet Volume 12.7 FL (9.6-12.0); Monocytes # 0.6 10*3/uL (0.11-0.8); Monocytes % 8.3 % (1.7-12.7); Neutrophils % 50.5 % (38.7-73.9); Platelet Count 151 T/CUMM (130-400); Red Blood Count 4.43 MC/CUMM (3.8-5.5); Red Cell Distribution Width 12.2 % (9.3-17.3); White Blood Count 7.2 T/CUMM (4-12)
[2022-01-22 06:45] LABS: Alanine Aminotransferase 23 U/L (13-56); Albumin 2.8 G/DL (3.4-5.0); Alkaline Phosphatase 29 U/L (45-117); Aspartate Amino Transferase 13 U/L (0-37); Bilirubin,Total < 0.39 MG/DL (0.20-1.00); Blood Urea Nitrogen 13 MG/DL (7-18); Carbon Dioxide 16 MMOL/L (21-32); Chloride 106 MMOL/L (98-107); Cholesterol 125 MG/DL (50-200); Glucose 160 MG/DL (74-106); HDL Cholesterol 62 MG/DL (40-60); Osmolality,Calculated 259.1 MOS/KG (273-304); Risk Ratio 2.02; Sodium 128 MMOL/L (136-145); Thyroid Stimulating Hormone 0.921 uIU/ml (0.358-3.74); Triglycerides 133 MG/DL (2-150); VLDL Cholesterol 26.6 MG/DL
[2022-01-22 06:52] LABS: Calcium < 5.0 MG/DL (8.5-10.1); Potassium > 10.0 MMOL/L (3.5-5.1)
[2022-01-22 08:14] LABS: Potassium 3.7 MMOL/L (3.5-5.1)
[2022-01-22] MEDS: ACETAMINOPHEN 325 MG TABLET PO PRN ×2 (08:33)
[2022-01-22] MEDS: INSULIN LISPRO 100 UNIT/ML SUBCUT SCH (08:33)
[2022-01-22 08:39] VITALS: BP 139/71
[2022-01-22] MEDS ORDERED: PANTOPRAZOLE 40 MG TABLET PO SCH (09:00)
[2022-01-22] MEDS ORDERED: POTASSIUM CHLORIDE 20 MEQ TABLET PO SCH (09:00)
[2022-01-22] MEDS ORDERED: ATORVASTATIN 20 MG TABLET PO SCH (09:00)
[2022-01-22] MEDS ORDERED: cefTRIAXone 1,000 MG in SODIUM CHLORIDE 0.9% 100 ML IV SCH (15:00)
== END 2022-01-22 09:50 | disposition home or self-care (01) ==
LOC: SUATTDRO → N.ED 11:36 → N.EDINP 11:36 → N.2W 18:02
PROVIDERS: ADMIT Emergency Medicine; ATTEND Emergency Medicine